=== PATIENT | female | born 1950 | race Hispanic/Latino ===

== ENCOUNTER 2018-10-07 15:55 | Observation (INO) | payer OTHER ==
--- OUTSIDE RECORDS SUMMARY | 2018-10-07 17:23 | XMS REPORT ---
:1950 [facility] [address] [place] [address] [address] [place] [address] Care Team Providers Name Role Phone ALFREDO GAUTAM Unavailable Unavailable Problems This patient has no known problems. Allergies, Adverse Reactions, Alerts This patient has no known allergies or adverse reactions. Medications This patient has no known medications. Results Test Description Test Time Test Comments Text Results Atomic Results Result Comments MM, STEREOTACTIC 2018-08-02 Reason for Addendum BeginsMRN#: BIOPSY, BREAST, 10:24:00 Exam:->microcalcifications of [id number]: RIGHT breast 08/02/2018 Gagan Guerra M.D. 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 Addendum EndsN#: [id number] - MM, STEREOTACTIC BIOPSY, BREAST, RIGHTSTEREOTACTIC GUIDED BIOPSY RIGHT BREAST WITH MARKING DEVICE INSERTED AND POST DIGITAL MAMMOGRAPHIC IMAGING AND RADIOGRAPHIC SPECIMEN IMAGIN07/31/2018PATIENT CONSENT: The procedure, risks, benefits and alternatives were discussed with the patient. Informed consent was obtained. A stereotactic guided biopsy was performed for the area of calcifications located in the right breast at 9 o'clock posterior depth. The skin was prepped in the usual manner. Local anesthetic was administered to the access site. A skin clay was made in the breast. The abnormality was approached from the lateral aspect using a prone table. A 9 gauge biopsy needle was placed adjacent to the abnormality under computer guidance and confirmatory stereotactic mammography images were obtained to document needle placement. Once the needle was documented to be in the correct location, six specimens were obtained using FireHost device. A clip was inserted into the biopsy cavity. Post procedure digital mammographic imaging demonstrates the clip at the targeted area. The specimens were sent to the laboratory for pathological analysis. IMPRESSION: STEREOTACTIC GUIDED BIOPSYStereotactic guided biopsy of the area of calcifications in the right breast at 9 o'clock posterior depth was successful with no apparent post procedure complications. The imaged specimens includes the calcifications. Gagan Guerra M.D. pth/:07/31/2018 14:23:26 Loan Examiner: Winifred WAGGONER(Ирина)(Vitor), [facility] [id number] , STEREOTACTIC 2018-08-02 Reason for Addendum BeginsMRN#: BIOPSY, BREAST, 10:23:00 Exam:->macrocalcifications of [id number]: LEFT breast 08/02/2018 Gagan Guerra M.D. 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 Addendum EndsMRN#: [id number] - MM, STEREOTACTIC BIOPSY, BREAST, LEFTSTEREOTACTIC GUIDED BIOPSY LEFT BREAST WITH MARKING DEVICE INSERTED AND POST DIGITAL MAMMOGRAPHIC IMAGING AND RADIOGRAPHIC SPECIMEN IMAGIN07/31/2018PATIENT CONSENT: The procedure, risks, benefits and alternatives were discussed with the patient. Informed consent was obtained. A stereotactic guided biopsy was performed for the area of calcifications located in the left breast at 8 o'clock posterior depth. The skin was prepped in the usual manner. Local anesthetic was administered to the access site. A skin clay was made in the breast. The abnormality was approached from the medial aspect using a prone table. A 9 gauge biopsy needle was placed adjacent to the abnormality under computer guidance and confirmatory stereotactic mammography images were obtained to document needle placement. Once the needle was documented to be in the correct location, six specimens were obtained using nanoThericsIVA device. A clip was inserted into the biopsy cavity. Post procedure digital mammographic imaging demonstrates the clip at the targeted area. The specimens were sent to the laboratory for pathological analysis. IMPRESSION: STEREOTACTIC GUIDED BIOPSYStereotactic guided biopsy of the area of calcifications in the left breast at 8 o'clock posterior depth was successful with no apparent post procedure complications. The imaged specimens includes the calcifications. Gagan Guerra M.D. pth/:07/31/2018 14:26:29 Loan Examiner: Winifred Graham RT(R)(M), [facility] [id number] UE EXAM 2018-08-01 Surgical Pathology 11:58:00 Report Case: [id number] Authorizing Provider: Gagan Guerra MD Collected: 07/31/2018 1320 Ordering Location: [facility] Received: 07/31/2018 1405 Pathologist: Vani Real MD Specimens: A) - Breast, Left, LEFT POSTERIOR LOWER INNER BREST CALCIFICATION B) - Breast, Right, RIGHT POSTERIOR 9 O CLOCK BREAST CALCIFICATION A. 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 [id number]. [id number] hyalinizing lesions A. Left posterior lower inner breast calcification. B. Right posterior 9 o'clock breast calcification Specimen is received in two containers of formalin both labeled with the patient's information.Specimen A: Labeled "left posterior lower inner breast calcification" consists of multiple yellow breast core biopsies ranging in length from 1 to 3 cm.Ink code: Blue.The specimen is entirely submitted in A1-A3.Specimen B: Labeled "right posterior 9 o'clock breast calcification" consists of multiple yellow breast core biopsies ranging from 0.4 to 3 cm.Ink code: Red.The specimen is entirely submitted in B1 and B2. CG/ew A. - B. Performed. MM, DIGITAL, 2018-07-31 Left breast calcifications MRN#: UNILATERAL, 14:27:00 [id number] - CONFER JESS, MM, DIGITAL, MAMMO, LEFT UNILATERAL, CONFER INCLUDING CAD JESS, MAMMO, LEFT INCLUDING CADUNILATERAL LEFT DIGITAL PROBLEM SOLVING MAMMOGRAM WITH CAD POST-PROCEDURE IMAGING FOR MARKER PLACEMENT: 07/31/2018 The tissue of the left breast is heterogeneously dense. This may lower the sensitivity of mammography. Current study was also evaluated with a Computer Aided Detection (CAD) system. The post procedure mammogram was performed on a separate mammography unit.A clip is placed at the biopsy site. IMPRESSION: POST PROCEDURE MAMMOGRAM FOR MARKER PLACEMENTAwait pathology results. Gagan Guerra M.D. pth/:07/31/2018 14:27:38 Loan Examiner: Winifred DU (R)), [facility] Mammogram BI-RADS: Post-procedure mammogram for marker placement [id number] , MAMMO, 2018-07-31 Reason for exam:->Left breast MRN#: SPECIMEN, 14:26:00 calcifications [id number] - RADIOGRAPH, LEFT MM, MAMMO, SPECIMEN, RADIOGRAPH, LEFTSPECIMEN LEFT BREAST: 07/31/2018Six stereotactic guided biopsy specimens were imaged for the area of calcifications located in the left breast at 8 o'clock posterior depth. IMPRESSION: SPECIMENThe imaged specimens includes the calcifications. Gagan Guerra M.D. pth/:07/31/2018 14:26:58 Loan Examiner: Winfired DU (R)), [facility] [id number] , DIGITAL, 2018-07-31 Right breast calcifications MRN#: UNILATERAL, 14:24:00 [id number] - CONFER JESS, MM, DIGITAL, MAMMO, RIGHT UNILATERAL, CONFER INCLUDING CAD JESS, MAMMO, RIGHT INCLUDING CADUNILATERAL RIGHT DIGITAL PROBLEM SOLVING MAMMOGRAM WITH CAD POST-PROCEDURE IMAGING FOR MARKER PLACEMENT: 07/31/2018 The tissue of the right breast is heterogeneously dense. This may lower the sensitivity of mammography. Current study was also evaluated with a Computer Aided Detection (CAD) system. The post procedure mammogram was performed on a separate mammography unit.A clip is placed at the biopsy site. IMPRESSION: POST PROCEDURE MAMMOGRAM FOR MARKER PLACEMENTAwait pathology results. Gagan Guerra M.D. pth/:07/31/2018 14:24:55 Loan Examiner: Winifred DU (R)), [facility] Mammogram BI-RADS: Post-procedure mammogram for marker placement [id number] , MAMMO, 2018-07-31 Reason for exam:->Right breast MRN#: SPECIMEN, 14:23:00 calcifications [id number] - RADIOGRAPH, RIGHT MM, MAMMO, SPECIMEN, RADIOGRAPH, RIGHTSPECIMEN RIGHT BREAST: 07/31/2018Six stereotactic guided biopsy specimens were imaged for the area of calcifications located in the right breast at 9 o'clock posterior depth. IMPRESSION: SPECIMENThe imaged specimens includes the calcifications. Gagan Guerra M.D. pth/:07/31/2018 14:23:54 Loan Examiner: Winifred DU (R)), [facility] [id number]
--- OUTSIDE RECORDS SUMMARY | 2018-10-07 17:23 | XMS REPORT | Clinical Summary ---
:1950 Author Organization [facility] Address [address] [place] [address] Care Team Providers Name Role Phone Josué Lowe Primary Care Provider Allergies Active Allergy Reactions Severity Noted Date Comments Codeine Swelling High 07/31/2018 Swelling of tounge Medications Medication Sig Dispensed Refills Start End Date Status Date hydroCHLOROthiazide 1 TABLET BY MOUTH 3 Active (HYDRODIURIL) 25 MG ONCE A DAY 8 tablet NEEDED FOR EDEMA levothyroxine Take 100 mcg by 3 Active (SYNTHROID, LEVOTHROID) mouth daily. 8 100 MCG tablet lisinopril Take 40 mg by mouth 3 Active (PRINIVIL,ZESTRIL) 40 MG daily. 8 tablet pravastatin (PRAVACHOL) Take 20 mg by 3 Active 20 MG tablet mouth. 8 amLODIPine (NORVASC) 10 Take 10 mg by 3 Active MG tablet mouth. 8 insulin glargine Inject 32 Units 0 Active (LANTUS) 100 unit/mL subcutaneously injection nightly Use as directed . Active Problems Not on file Encounters Date Type Specialty Care Team Description 07/31/2018 [facility], Microcalcifications of the Encounter Chante breast MD Mamadou 07/31/2018 [facility], Microcalcifications of the Encounter Chante breast MD Mamadou 07/30/2018 Outside Orders [facility], Microcalcifications of the Scheduling Chante breast (Primary Dx) MD Mamadou after 10/06/2017 Social History Tobacco Use Types Packs/Day Years Used Date Never Smoker Smokeless Tobacco: Never Used Alcohol Use Drinks/Week oz/Week Comments No Alcohol Habits Answer Date Recorded How often do you have a drink containing alcohol? Never 07/31/2018 How many drinks containing alcohol do you have on a typical Not asked day when you are drinking? How often do you have six or more drinks on one occasion? Not asked Sex Assigned at Date Recorded Not on file Job Start Date Occupation Industry Not on file Not on file Not on file Travel History Travel Start Travel End No recent travel history available. Last Filed Vital Signs Vital Sign Reading Time Taken Blood Pressure 152/71 07/31/2018 12:00 PM OBSTETRICS NURSE PRACTITIONER Pulse 72 07/31/2018 12:00 PM OBSTETRICS NURSE PRACTITIONER Temperature 36.4 C (97.6 F) 07/31/2018 12:00 PM OBSTETRICS NURSE PRACTITIONER Respiratory Rate 14 07/31/2018 12:00 PM OBSTETRICS NURSE PRACTITIONER Oxygen Saturation 100% 07/31/2018 12:00 PM OBSTETRICS NURSE PRACTITIONER Inhaled Oxygen Concentration - - Weight 88.9 kg (196 lb) 07/31/2018 10:02 AM OBSTETRICS NURSE PRACTITIONER Height 157.5 cm (5' 2") 07/31/2018 10:02 AM OBSTETRICS NURSE PRACTITIONER Body Mass Index 35.85 07/31/2018 10:02 AM OBSTETRICS NURSE PRACTITIONER Plan of Treatment Not on file Procedures Procedure Name Priority Date/Time Associated Diagnosis Comments TISSUE EXAM AP Routine 07/31/2018 Results for 1:20 PM OBSTETRICS NURSE PRACTITIONER this procedure are in the results section. MM, DIGITAL, Routine 07/31/2018 Results for UNILATERAL, CONFER 12:15 PM OBSTETRICS NURSE PRACTITIONER this procedure JESS, MAMMO, RIGHT are in the results section. MM STEREOTACTIC Routine 07/31/2018 Microcalcifications of Results for BREAST BIOPSY - 12:15 PM OBSTETRICS NURSE PRACTITIONER the breast this procedure RIGHT are in the results section. MM BREAST SPECIMEN JENNA 07/31/2018 Results for RADIOGRAPH RIGHT 12:10 PM OBSTETRICS NURSE PRACTITIONER this procedure are in the results section. MM, DIGITAL, Routine 07/31/2018 Results for UNILATERAL, CONFER 12:10 PM OBSTETRICS NURSE PRACTITIONER this procedure JESS, MAMMO, LEFT are in the results section. MM BREAST SPECIMEN JENNA 07/31/2018 Results for RADIOGRAPH LEFT 11:10 AM OBSTETRICS NURSE PRACTITIONER this procedure are in the results section. MM STEREOTACTIC Routine 07/31/2018 Microcalcifications of Results for BREAST BIOPSY - 11:10 AM OBSTETRICS NURSE PRACTITIONER the breast this procedure LEFT are in the results section. after 10/06/2017 Results Tissue Exam (07/31/2018 1:20 PM OBSTETRICS NURSE PRACTITIONER) Case Report Surgical Pathology Report Case: [id number] [facility] Authorizing Provider:Gagan Guerra MDCollected: 07/31/2018 1320 [facility] CenterReceived: 07/31/2018 1405 Pathologist: Vani Real MD Specimens: A) - Breast, Left, LEFT POSTERIOR LOWER INNER BREST CALCIFICATION B) - Breast, Right, RIGHT POSTERIOR 9 O CLOCK BREAST CALCIFICATION DIAGNOSIS A. 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 CPT Code(s) A. 21657 [facility] B. 50829 [facility] CLINICAL HISTORY Questionable hyalinizing [facility] lesions [facility] SPECIMEN SOURCE A. Left posterior lower [facility] inner breast calcification. [facility] B. Right posterior 9 o'clock breast calcification GROSS DESCRIPTION Specimen is received in two containers of formalin both labeled with the patient's information. [facility] Specimen A: Labeled "left posterior lower inner breast calcification" consists of multiple yellow breast core biopsies ranging in length from 1 to 3 cm. Ink code: Blue. The specimen is entirely submitted in A1-A3. Specimen B: Labeled "right posterior 9 o'clock breast calcification" consists of multiple yellow breast core biopsies ranging from 0.4 to 3 cm. Ink code: Red. The specimen is entirely submitted in B1 and B2. CG/ew MICROSCOPIC DESCRIPTION A. - B. Performed. [facility] Specimen Tissue - Breast, Right Performing Organization Address City/State/Zipcode Phone Number [address] [address] [phone] CENTER MM Stereotactic breast biopsy right (07/31/2018 12:15 PM OBSTETRICS NURSE PRACTITIONER) Narrative Performed At Addendum Begins [facility] AMENDMENT: 08/02/2018 Gagan Guerra M.D. 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 This is concordant with the imaging findings. Addendum Ends #[id number] - MM, STEREOTACTIC BIOPSY, BREAST, RIGHT STEREOTACTIC GUIDED BIOPSY RIGHT BREAST WITH MARKING DEVICE INSERTED AND POST DIGITAL MAMMOGRAPHIC IMAGING AND RADIOGRAPHIC SPECIMEN IMAGIN07/31/2018 PATIENT CONSENT: The procedure, risks, benefits and alternatives were discussed with the patient. Informed consent was obtained. A stereotactic guided biopsy was performed for the area of calcifications located in the right breast at 9 o'clock posterior depth.The skin was prepped in the usual manner.Local anesthetic was administered to the access site.A skin clay was made in the breast.The abnormality was approached from the lateral aspect using a prone table.A 9 gauge biopsy needle was placed adjacent to the abnormality under computer guidance and confirmatory stereotactic mammography images were obtained to document needle placement.Once the needle was documented to be in the correct location, six specimens were obtained using [employer] device.A clip was inserted into the biopsy cavity.Post procedure digital mammographic imaging demonstrates the clip at the targeted area.The specimens were sent to the laboratory for pathological analysis. IMPRESSION: STEREOTACTIC GUIDED BIOPSY Stereotactic guided biopsy of the area of calcifications in the right breast at 9 o'clock posterior depth was successful with no apparent post procedure complications.The imaged specimens includes the calcifications. Gagan Guerra M.D. pth/:07/31/2018 14:23:26 Treating Engineer Helper: Winifred WAGGONER(Ирина)(M), [facility] [id number] Procedure Note Interface, External Ris In - 08/02/2018 11:40 AM OBSTETRICS NURSE PRACTITIONER Addendum Begins AMENDMENT: 08/02/2018 Gagan Guerra M.D. 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 This is concordant with the imaging findings. Addendum Ends #[id number] - MM, STEREOTACTIC BIOPSY, BREAST, RIGHT STEREOTACTIC GUIDED BIOPSY RIGHT BREAST WITH MARKING DEVICE INSERTED AND POST DIGITAL MAMMOGRAPHIC IMAGING AND RADIOGRAPHIC SPECIMEN IMAGIN07/31/2018 PATIENT CONSENT: The procedure, risks, benefits and alternatives [...] correct location, six specimens were obtained using [employer] device. A clip was inserted into the biopsy cavity. Post procedure digital mammographic imaging demonstrates the clip at the targeted area. The specimens were sent to the laboratory for pathological analysis. IMPRESSION: STEREOTACTIC GUIDED BIOPSY Stereotactic guided biopsy of the area of calcifications in the right breast at 9 o'clock posterior depth was successful with no apparent post procedure complications. The imaged specimens includes the calcifications. Gagan Guerra M.D. pth/:07/31/2018 14:23:26 Treating Engineer Helper: Winifred WAGGONER(Ирина)(Vitor), [facility] [id number] Performing Organization Address City/State/Zipcode Phone Number [facility] MM, DIGITAL, UNILATERAL, CONFER JESS, MAMMO, RIGHT (07/31/2018 12:15 PM OBSTETRICS NURSE PRACTITIONER) Narrative Performed At [facility] #[id number] - MM, DIGITAL, UNILATERAL, CONFER JESS, MAMMO, RIGHT INCLUDING CAD UNILATERAL RIGHT DIGITAL PROBLEM SOLVING MAMMOGRAM WITH CAD POST-PROCEDURE IMAGING FOR MARKER PLACEMENT: 07/31/2018 The tissue of the right breast is heterogeneously dense. This may lower the sensitivity of mammography. Current study was also evaluated with a Computer Aided Detection (CAD) system. The post procedure mammogram was performed on a separate mammography unit. A clip is placed at the biopsy site. IMPRESSION: POST PROCEDURE MAMMOGRAM FOR MARKER PLACEMENT Await pathology results. Gagan Guerra M.D. pth/:07/31/2018 14:24:55 Treating Engineer Helper: Winifred DU (R)), [facility] Mammogram BI-RADS: Post-procedure mammogram for marker placement [id number] Procedure Note Interface, External Ris In - 07/31/2018 2:32 PM OBSTETRICS NURSE PRACTITIONER #[id number] - MM, DIGITAL, UNILATERAL, CONFER JESS, MAMMO, RIGHT INCLUDING CAD UNILATERAL RIGHT DIGITAL PROBLEM SOLVING MAMMOGRAM WITH CAD POST-PROCEDURE IMAGING FOR MARKER PLACEMENT: 07/31/2018 The tissue of the right breast is heterogeneously dense. This may lower the sensitivity of mammography. Current study was also evaluated with a Computer Aided Detection (CAD) system. The post procedure mammogram was performed on a separate mammography unit. A clip is placed at the biopsy site. IMPRESSION: POST PROCEDURE MAMMOGRAM FOR MARKER PLACEMENT Await pathology results. Gagan Guerra M.D. pth/:07/31/2018 14:24:55 Treating Engineer Helper: Winifred DU (R)), [facility] Mammogram BI-RADS: Post-procedure mammogram for marker placement [id number] Performing Organization Address City/State/Zipcode Phone Number [facility] MM Breast Specimen Radiograph Right (07/31/2018 12:10 PM OBSTETRICS NURSE PRACTITIONER) Narrative Performed At [facility] #[id number] - MM, MAMMO, SPECIMEN, RADIOGRAPH, RIGHT SPECIMEN RIGHT BREAST: 07/31/2018 Six stereotactic guided biopsy specimens were imaged for the area of calcifications located in the right breast at 9 o'clock posterior depth. IMPRESSION: SPECIMEN The imaged specimens includes the calcifications. Gagan Guerra M.D. pth/:07/31/2018 14:23:54 Treating Engineer Helper: Winifred DU (R)), [facility] [id number] Procedure Note Interface, External Ris In - 07/31/2018 2:32 PM OBSTETRICS NURSE PRACTITIONER #[id number] - MM, MAMMO, SPECIMEN, RADIOGRAPH, RIGHT SPECIMEN RIGHT BREAST: 07/31/2018 Six stereotactic guided biopsy specimens were imaged for the area of calcifications located in the right breast at 9 o'clock posterior depth. IMPRESSION: SPECIMEN The imaged specimens includes the calcifications. Gagan Guerra M.D. pth/:07/31/2018 14:23:54 Treating Engineer Helper: Winifred DU (R)), [facility] [id number] Performing Organization Address City/State/Zipcode Phone Number [facility] MM, DIGITAL, UNILATERAL, CONFER JESS, MAMMO, LEFT (07/31/2018 12:10 PM OBSTETRICS NURSE PRACTITIONER) Narrative Performed At [facility] #[id number] - MM, DIGITAL, UNILATERAL, CONFER JESS, MAMMO, LEFT INCLUDING CAD UNILATERAL LEFT DIGITAL PROBLEM SOLVING MAMMOGRAM WITH CAD POST-PROCEDURE IMAGING FOR MARKER PLACEMENT: 07/31/2018 The tissue of the left breast is heterogeneously dense. This may lower the sensitivity of mammography. Current study was also evaluated with a Computer Aided Detection (CAD) system. The post procedure mammogram was performed on a separate mammography unit. A clip is placed at the biopsy site. IMPRESSION: POST PROCEDURE MAMMOGRAM FOR MARKER PLACEMENT Await pathology results. Gagan Guerra M.D. pth/:07/31/2018 14:27:38 Treating Engineer Helper: Winifred DU (R)), [facility] Mammogram BI-RADS: Post-procedure mammogram for marker placement [id number] Procedure Note Interface, External Ris In - 07/31/2018 3:55 PM OBSTETRICS NURSE PRACTITIONER #[id number] - MM, DIGITAL, UNILATERAL, CONFER JESS, MAMMO, LEFT INCLUDING CAD UNILATERAL LEFT DIGITAL PROBLEM SOLVING MAMMOGRAM WITH CAD POST-PROCEDURE IMAGING FOR MARKER PLACEMENT: 07/31/2018 The tissue of the left breast is heterogeneously dense. This may lower the sensitivity of mammography. Current study was also evaluated with a Computer Aided Detection (CAD) system. The post procedure mammogram was performed on a separate mammography unit. A clip is placed at the biopsy site. IMPRESSION: POST PROCEDURE MAMMOGRAM FOR MARKER PLACEMENT Await pathology results. Gagan Guerra M.D. pth/:07/31/2018 14:27:38 Treating Engineer Helper: Winifred WAGGONER(R)(M), [facility] Mammogram BI-RADS: Post-procedure mammogram for marker placement [id number] Performing Organization Address City/State/Zipcode Phone Number [id number] MM Stereotactic breast biopsy left (07/31/2018 11:10 AM [facility]) Narrative Performed At Addendum Begins [id number] AMENDMENT: 08/02/2018 Gagan Guerra M.D. 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 This is concordant with the imaging findings. Addendum Ends #[id number] - MM, STEREOTACTIC BIOPSY, BREAST, LEFT STEREOTACTIC GUIDED BIOPSY LEFT BREAST WITH MARKING DEVICE INSERTED AND POST DIGITAL MAMMOGRAPHIC IMAGING AND RADIOGRAPHIC SPECIMEN IMAGIN07/31/2018 PATIENT CONSENT: The procedure, risks, benefits and alternatives were discussed with the patient. Informed consent was obtained. A stereotactic guided biopsy was performed for the area of calcifications located in the left breast at 8 o'clock posterior depth.The skin was prepped in the usual manner.Local anesthetic was administered to the access site.A skin clay was made in the breast.The abnormality was approached from the medial aspect using a prone table.A 9 gauge biopsy needle was placed adjacent to the abnormality under computer guidance and confirmatory stereotactic mammography images were obtained to document needle placement.Once the needle was documented to be in the correct location, six specimens were obtained using [employer] device.A clip was inserted into the biopsy cavity.Post procedure digital mammographic imaging demonstrates the clip at the targeted area.The specimens were sent to the laboratory for pathological analysis. IMPRESSION: STEREOTACTIC GUIDED BIOPSY Stereotactic guided biopsy of the area of calcifications in the left breast at 8 o'clock posterior depth was successful with no apparent post procedure complications.The imaged specimens includes the calcifications. Gagan Guerra M.D. pth/:07/31/2018 14:26:29 Treating Engineer Helper: Winifred WAGGONER(Ирина)(Vitor), [facility] [id number] Procedure Note Interface, External Ris In - 08/02/2018 11:40 AM OBSTETRICS NURSE PRACTITIONER Addendum Begins AMENDMENT: 08/02/2018 Gagan Guerra M.D. 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 This is concordant with the imaging findings. Addendum Ends #[id number] - MM, STEREOTACTIC BIOPSY, BREAST, LEFT STEREOTACTIC GUIDED BIOPSY LEFT BREAST WITH MARKING DEVICE INSERTED AND POST DIGITAL MAMMOGRAPHIC IMAGING AND RADIOGRAPHIC SPECIMEN IMAGIN07/31/2018 PATIENT CONSENT: The procedure, risks, benefits and alternatives [...] correct location, six specimens were obtained using [employer] device. A clip was inserted into the biopsy cavity. Post procedure digital mammographic imaging demonstrates the clip at the targeted area. The specimens were sent to the laboratory for pathological analysis. IMPRESSION: STEREOTACTIC GUIDED BIOPSY Stereotactic guided biopsy of the area of calcifications in the left breast at 8 o'clock posterior depth was successful with no apparent post procedure complications. The imaged specimens includes the calcifications. Gagan Guerra M.D. pth/:07/31/2018 14:26:29 Treating Engineer Helper: Winifred DU (R)), [facility] [id number] Performing Organization Address City/State/Zipcode Phone Number [facility] MM Breast Specimen Radiograph Left (07/31/2018 11:10 AM OBSTETRICS NURSE PRACTITIONER) Narrative Performed At [facility] #[id number] - MM, MAMMO, SPECIMEN, RADIOGRAPH, LEFT SPECIMEN LEFT BREAST: 07/31/2018 Six stereotactic guided biopsy specimens were imaged for the area of calcifications located in the left breast at 8 o'clock posterior depth. IMPRESSION: SPECIMEN The imaged specimens includes the calcifications. Gagan Guerra M.D. pth/:07/31/2018 14:26:58 Treating Engineer Helper: Winifred DU (R)), [facility] [id number] Procedure Note Interface, External Ris In - 07/31/2018 3:56 PM OBSTETRICS NURSE PRACTITIONER #[id number] - MM, MAMMO, SPECIMEN, RADIOGRAPH, LEFT SPECIMEN LEFT BREAST: 07/31/2018 Six stereotactic guided biopsy specimens were imaged for the area of calcifications located in the left breast at 8 o'clock posterior depth. IMPRESSION: SPECIMEN The imaged specimens includes the calcifications. Gagan Guerra M.D. pth/:07/31/2018 14:26:58 Treating Engineer Helper: Winifred WAGGONER (R M), [facility] [id number] Performing Organization Address City/State/Zipcode Phone Number [facility] after 10/06/2017 Insurance Payer Benefit Plan / Subscriber ID Type Phone Address Group [employer] - MEDICARE AETNA MEDICARE xxxxxxxx Maps [phone] [address] [employer] OPEN [place] [place] [address]
[2018-10-07] MEDS ORDERED: ONDANSETRON 4 MG/2 ML VIAL IV PRN (17:51)
[2018-10-07] MEDS ORDERED: GLUCAGON 1 MG/VIAL IM PRN (17:51)
[2018-10-07] MEDS ORDERED: D50W 25 GM/50 ML SYRINGE IV PRN (17:51)
[2018-10-07] MEDS: INSULIN -REGULAR HUMAN 50 UNIT/0.5 ML ML SQ SCH (18:00)
[2018-10-07 18:16] LABS: Absolute Lymphocytes (CBC) 1.9 K/uL (0.7-4.9); Absolute Monocytes 0.7 K/uL (0.1-1.3); Absolute Neutrophil 2.5 K/uL (1.8-8.0); Basophils % 0.3 % (0-1.3); Lymphocytes % 37.1 % (15.3-44.8); MPV 9.6 fL (7.6-11.3); Monocytes % 13.5 % (3.3-12.3); RBC Red Blood Cell Count 4.61 M/uL (3.86-4.86)
[2018-10-07 18:38] LABS: Albumin 3.7 g/dL (3.4-5.0); Bilirubin Total 0.4 mg/dL (0.2-1.0); Potassium 3.6 mmol/L (3.5-5.1); Protein, Total 7.5 g/dL (6.4-8.2)
[2018-10-07 20:04] LABS: Urine Appearance CLOUDY; Urine Bilirubin NEGATIVE (NEG); Urine Blood NEGATIVE (NEG); Urine Color YELLOW; Urine Glucose NEGATIVE (NEG); Urine Protein NEGATIVE (NEG); Urine Urobilinogen 0.2 mg/dL (0.2-1.0)
[2018-10-07 20:06] LABS: Urine Microscopic Reflex ORDER UMIC
[2018-10-07 20:23] LABS: Urine Bacteria >50 /HPF (<20); Urine RBC NONE SEEN /HPF (NONE SEEN)
[2018-10-07 20:24] LABS: Urine Culture Reflex Order NOT NEEDED
[2018-10-07] MEDS: NACHLORIDE 0.45% 1,000 ML IV SCH (21:22)
[2018-10-08] MEDS: NACHLORIDE 0.45% 1,000 ML IV SCH ×5 (00:40→22:00)
[2018-10-08 02:12] VITALS: BMI 33.7
[2018-10-08] MEDS: INSULIN -REGULAR HUMAN 50 UNIT/0.5 ML ML SQ SCH ×5 (06:00→21:00)
[2018-10-08 06:48] LABS: Potassium 3.9 mmol/L (3.5-5.1)
[2018-10-08] MEDS ORDERED: PNEUMOCOCCAL VACCINE 0.5 ML IMVAC ONE (09:00)
--- NOTE | 2018-10-09 00:36 | HP ---
Date of Admission: 10/07/2018 Chief Complaint: Diarrhea, vomiting, and dehydration. History Of Present Illness: A 68-year-old female was brought to the office with 3-4 days of diarrhea and vomiting and dehydration. The patient was found to have clinically dehydrated with a blood pres sure systolic 100. The patient is admitted for observation. Past Medical History: Extensive, includes history of hypotension, chronic renal insufficiency, hyper lipidemia. Past Surgical History: Positive for right shoulder surgery and gallbladder surgery. Family History: Positive for dementia and heart disease, COPD. Review of Systems: The patient denies any chest pain or shortness of breath. Physical Examination: General: Revealed 68-year-old female, fully alert and oriented. Vital Signs: At the time of admission included blood pressure of 109/60, temperature normal. HEENT: No icterus. Neck: Supple. JVD negative. Chest: Clear. Heart: Regular. Abdomen: Mild diffuse tenderness. Bowel sounds present. Extremities: No edema. Neurological: No deficits. Laboratory Data: White count normal. Chem profile; BUN 53, creatinine 2.76. Assessment: 1.Gastroenteritis. 2.Dehydration. 3.Vfidc-dp-vamsrbl renal failure. 4.Type 2 diabetes. 5.Hyperlipidemia. Plan: IV fluids. Hold blood pressure medications. Try clear liquid diet. LAURA/JAZZY Voice ID: [id number]
--- NOTE | 2018-10-09 02:01 | PN ---
The patient's creatinine is better; however, her BUN is still high. She still has diarrhea. In view of that the patient has been given same amount of IV fluids until this evening, I cut down the IV fl uids to 50 cc an hour. She will have repeat C7 in the a.m. LAURA/JAZZY Voice ID: [id number] Report ID: [id number]
[2018-10-09 06:15] LABS: Potassium 4.2 mmol/L (3.5-5.1)
[2018-10-09] MEDS: INSULIN -REGULAR HUMAN 50 UNIT/0.5 ML ML SQ SCH (07:30)
[2018-10-09 07:31] VITALS: O2SAT 98
[2018-10-09] MEDS: NACHLORIDE 0.45% 1,000 ML IV SCH (08:06)
[2018-10-09 08:54] VITALS: BP 102/44; TEMP 97
== END 2018-10-09 10:20 | disposition home or self-care (01) ==
LOC: 4TH 17:19
PROVIDERS: ADMIT Internal Medicine; ATTEND Internal Medicine
DX: K52.9 Noninfective gastroenteritis and colitis, unspecified (principal); E86.0 Dehydration; N18.9 Chronic kidney disease, unspecified; N17.9 Acute kidney failure, unspecified; E11.8 Type 2 diabetes mellitus with unspecified complications; E78.5 Hyperlipidemia, unspecified; I95.9 Hypotension, unspecified
CPT/HCPCS: 87045; 85025; 80048 ×2; 36415 ×2; 82962 ×7; 87046; 87493; 83690; 80053; 90670; G0009; J2405; G0379; G0378; 81003; 81015

== ENCOUNTER 2020-01-12 17:15 | Emergency (ER) | payer OTHER ==
--- OUTSIDE RECORDS SUMMARY | 2020-01-12 17:34 | XMS REPORT | Clinical Summary ---
:1950 Author Organization [facility] Address [address] [place] [address] Care Team Providers Name Role Phone Leonard Lowe Primary Care Provider Unavailable Allergies Active Allergy Reactions Severity Noted Date Comments Codeine Swelling High 07/31/2018 Swelling of kenneth nge Medications Medication Sig Dispensed Refills Start End [...] directed . Active Problems Not on file Social History Tobacco Use Types Packs/Day Years [...] six or more drinks on one occasion? No t asked Sex Assigned at Date Recorded Not on file Job Start Date Occupation Industry Not on file Not on file Not on file Travel History Travel Start Travel End No recent travel history available. Last Filed Vital Signs Not on file Plan of Treatment Not on file Results Not on fileafter 01/11/2019 Insurance Payer Benefit Plan / Subscriber ID Type Phone Address Group [employer] - MEDICARE AETNA MEDICARE xxxxxxxx [facility] [phone] [address] [employer] [place] [address] [address]) [place] [phone]
--- OUTSIDE RECORDS SUMMARY | 2020-01-12 17:35 | XMS REPORT | Continuity of Care Document ---
:1950 Author Organization [facility] t Address [address] [place] [address] Dr. Espitia. [address] [place] [address] Care Team Providers Name Role Phone Leonard Lowe Primary Care Physician Unavailable JAKE GAUTAM Attending Clinician Unavailable Problems This patient has no known problems. Allergies, Adverse Reactions, Alerts Allergy Allergy Status Severity Reaction(s) Onset Inactive Treating Comm ents Source Name Type Date Date Clinician Codeine Drug Active Swelling Swelling [facility] Social History Social Habit Start Date Stop Date Quantity Comments Source History [facility] Alcohol [facility] Std [facility]inks [facility] History [facility] Alcohol [facility] Binge [facility] Sex Assigned At [facility] History SDOH Alcohol 2018-07-31 2018-07-[address] [facility] - Frequency 00:00:00 00:00:00 Medical [place] Smoking Status Start Date Stop Date Source Never smoker [facility] edical [place] Medications Ordered Filled Start Stop Current Ordering Indication Dosage Frequency Signature Comments Components Source Medication Medication Date Date Medication? Clinician (SIG) Name Name insulin Yes 32U QD Inject 32 [facility] glargine 1-30 Units [facility] - (LANTUS) 10:25: subcutaneo Med ical 100 unit/mL 13 usly Center injection nightly Use as directed . hydroCHLORO 2017-07 Yes [address] thiazide 1-12 BY MOUTH [facility] - (HYDRODIURI 00:00: ONCE A DAY Medical L) 25 MG 00 NEEDED Center tablet FOR EDEMA levothyroxi 2017-07 Yes 100ug QD Take [address] ne 1-12 mcg by [facility] - (SYNTHROID, 00:00: mouth Medic al LEVOTHROID) 00 daily. [place] 100 MCG tablet amLODIPine 2017-07 Yes 10mg Take [address] (NORVASC) 1-12 by mouth. [facility] - 10 MG 00:00: Medical tablet 00 Center lisinopril 2017-07 Yes 40mg QD Take [address] (PRINIVIL,Z 1-03 by mouth [facility] - ESTRIL) 40 00:00: daily. Medic al MG tablet 00 Center pravastatin 2017-07 Yes 20mg Take [address] (PRAVACHOL) 1-03 by mouth. July es - 20 MG 00:00: Medical tablet 00 Center Procedures This patient has no known procedures. Results Test Description Test Time Test Comments Results Result [facility] e Comments MM, STEREOTACTIC Reason for Addendum BeginsMRN#: BIOPSY, BREAST, 1 Exam:->microcalcif [id number]: RIGHT 10:24:00 ications of breast 08/02/2018 Gagan Guerra M.D. 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 Addendum EndsMRN#: [id number] - MM, STEREOTACTIC BIOPSY, BREAST, RIGHTSTEREOTACTIC GUIDED [...] correct location, six specimens were obtained using [employer] device. A clip was inserted into the [...] the calcifications. Gagan Guerra M.D. pth/:07/31/2018 14:23:26 Knitting Machine Operator: Winifred WAGGONER (R)(Vitor), [facility] [id number] , STEREOTACTIC Reason for Addendum BeginsMRN#: BIOPSY, BREAST, 1 Exam:->macrocalcif [id number]: LEFT 10:23:00 ications of breast 08/02/2018 Gagan Guerra M.D. 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 Addendum EndsMRN#: [id number] - MM, STEREOTACTIC BIOPSY, BREAST, LEFTSTEREOTACTIC GUIDED [...] administered to the access site. A skin caly was made in the breast. The abnormality was approached from the medial aspect using a prone table. A 9 gauge biopsy needle was placed adjacent to the abnormality under computer guidance and confirmatory stereotactic mammography images were obtained to document needle placement. Once the needle was documented to be in the correct location, six specimens were obtained using ComActivityIVA device. A clip was inserted into the [...] the calcifications. Gagan Guerra M.D. pth/:07/31/2018 14:26:29 Knitting Machine Operator: Winifred Graham RT(R)(M), [facility] [id number] UE EXAM 2018-07-04 Surgical Pathology 1 Report 11:58:00 Case: [id number] Authorizing Provider: Gagan Guerra MD Collected: 07/31/2018 1320 Ordering Location: [facility] Received: 07/31/2018 1405 Pathologist: Vani [...] COARSE CALCIFICATIONS Signing Pathologist Direct Phone Line: [phone] ally signed by Vani Real MD on 08/01/2018 at 11:58 Curiel the sections examined, no atypical hyperplasia or carcinoma is identified.A. [id number]. [id number] hyalinizing lesions A. Left posterior lower inner [...] CG/ew A. - B. Performed. MM, DIGITAL, 2018-07-04 Left breast MRN#: UNILATERAL, 0 calcifications [id number] - CONFER JESS, 14:27:00 MM, DIGITAL, MAMMO, LEFT UNILATERAL, CONFER INCLUDING [...] pathology results. Gagan Guerra M.D. pth/:07/31/2018 14:27:38 Knitting Machine Operator: Winifred DU (R)), [facility] Mammogram BI-RADS: Post-procedure mammogram for marker placement [id number] , MAMMO, 2018-07-04 Reason for MRN#: SPECIMEN, 0 exam:->Left breast [id number] - RADIOGRAPH, LEFT 14:26:00 calcifications MM, MAMMO, SPECIMEN, RADIOGRAPH, LEFTSPECIMEN LEFT BREAST: 07/31/2018Six stereotactic guided biopsy specimens were imaged for the area of calcifications located in the left breast at 8 o'clock posterior depth. IMPRESSION: SPECIMENThe imaged specimens includes the calcifications. Gagan Guerra M.D. pth/:07/31/2018 14:26:58 Knitting Machine Operator: Winifred MANCINI)(Vitor), [facility] [id number] , DIGITAL, 2018-07-04 Right breast MRN#: UNILATERAL, 0 calcifications [id number] - CONFER JESS, 14:24:00 MM, DIGITAL, MAMMO, RIGHT UNILATERAL, CONFER INCLUDING [...] pathology results. Gagan Guerra M.D. pth/:07/31/2018 14:24:55 Knitting Machine Operator: Winifred DU (R)), [facility] Mammogram BI-RADS: Post-procedure mammogram for marker placement [id number] , MAMMO, 2018-07-04 Reason for MRN#: SPECIMEN, 0 exam:->Right [id number] - RADIOGRAPH, RIGHT 14:23:00 breast MM, MAMMO, SPECIMEN, calcifications RADIOGRAPH, RIGHTSPECIMEN RIGHT BREAST: 07/31/2018Six stereotactic guided biopsy specimens were imaged for the area of calcifications located in the right breast at 9 o'clock posterior depth. IMPRESSION: SPECIMENThe imaged specimens includes the calcifications. Gagan Guerra M.D. pth/:07/31/2018 14:23:54 Knitting Machine Operator: Winifred WAGGONER (R)(Vitor), [facility] [id number]
[2020-01-12] MEDS ORDERED: ACETAMINOPHEN 500 MG TAB ONE (19:44)
--- NOTE | 2020-01-12 19:48 | RAD REPORT ---
EXAM DESCRIPTION: CT - CTHCSPWOC - 01/12/2020 7:34 pm CLINICAL HISTORY: Trauma, head and neck injury. fall COMPARISON: No comparisons TECHNIQUE: Axial 5 mm thick images of the head were obtained. Axial 2 mm thick images of the cervical spine were obtained with sagittal and coronal reconstruction images generated and reviewed. All CT scans are performed using dose optimization technique as appropriate and may include automated exposure control or mA/KV adjustment according to patient size. FINDINGS: CT HEAD WITHOUT CONTRAST: No acute hemorrhage, hydrocephalus or extra-axial collection is identified.Moderate diffuse brain atr ophy.No areas of brain edema or midline shift. The paranasal sinuses and mastoids are clear.The calvarium is intact. CT CERVICAL SPINE WITHOUT CONTRAST: No fracture or subluxation.Moderate multilevel degenerative change involves the mid and lower cervica l spine with disc thinning and posterior osteophyte formation.No prevertebral soft tissues swelling i s identified. IMPRESSION: No acute intracranial or cervical spine findings. Moderate multilevel cervical degenerative change.
--- NOTE | 2020-01-12 19:57 | RAD REPORT ---
EXAM DESCRIPTION: RAD - Shoulder Right 2 View - 01/12/2020 7:49 pm CLINICAL HISTORY: fall Fall, trauma, shoulder pain COMPARISON: No comparisons FINDINGS: Glenohumeral and AC joint degenerative changes are present with a high-riding humeral head , suggesting rotator cuff tear is present. No acute fracture or dislocation seen.
--- NOTE | 2020-01-12 19:58 | RAD REPORT ---
EXAM DESCRIPTION: RAD - Wrist Right 3 View - 01/12/2020 7:51 pm CLINICAL HISTORY: fall Pain COMPARISON: No comparisons FINDINGS: Mild arthritic changes involve the radiocarpal joint. No acute fracture or dislocation se en.
--- NOTE | 2020-01-12 19:58 | RAD REPORT ---
EXAM DESCRIPTION: RAD - Humerus Right - 01/12/2020 7:52 pm CLINICAL HISTORY: fall Fall, trauma, pain COMPARISON: No comparisons FINDINGS: No acute fracture or dislocation seen.
--- NOTE | 2020-01-12 20:57 | EDPHYS ---
Physician Documentation [facility] Name: Gisele Abbott Age: 69 yrs Sex: Female : 1950 Arrival Date: 01/12/2020 Time: 17:19 Bed 13 Private MD: Josué Dejesus R ED Physician Alexey Lowe HPI: 01/11 19:45 This 69 yrs old Female presents to ER via Ambulatory with complaints of Fall mh7 Injury. 19:45 Details of fall: The patient fell from an upright position, while walking. Onset: The mh7 symptoms/episode began/occurred today. Associated injuries: The patient sustained injury to the head, contusion, pain, swelling, tenderness, neck injury, pain, pain with movement, tenderness, Right Shoulder, Right Arm, Right Wrist, decreased range of motion, painful injury. Severity of symptoms: At their worst the symptoms were moderate, earlier today, in the emergency department the symptoms have improved, moderately. Patient states that she tripped and fell into a wall then floor while carrying a laundry basket today. She states that she was dazed afterwards and does not believe she had LOC. She complains of head pain, neck pain, right shoulder, right arm, and right wrist pain. She denies any symptoms prior to falling including headache, chest pain, abdominal pain, SOB, nausea, vomiting, numbness/tingling, or weakness.. Historical: - Allergies: 17:34 Codeine; ll1 17:34 Tape; ll1 - PMHx: 17:34 Diabetes - IDDM; Hypertension; stage 3 kidney disease; ll1 - PSHx: 17:34 Cholecystectomy; Left rotator cuff; ll1 - Immunization history:: Flu vaccine is up to date. - Social history:: Smoking status: Patient denies any tobacco usage or history of. Patient/guardian denies using alcohol, street drugs, tobacco products. ROS: 19:45 Constitutional: Negative for fever, chills, and weight loss, Eyes: Negative for injury, mh7 pain, redness, and discharge, ENT: Negative for injury, pain, and discharge, Cardiovascular: Negative for chest pain, palpitations, and edema, Respiratory: Negative for shortness of breath, cough, wheezing, and pleuritic chest pain, Abdomen/GI: Negative for abdominal pain, nausea, vomiting, diarrhea, and constipation, Back: Negative for injury and pain, : Negative for injury, bleeding, discharge, and swelling, Skin: Negative for injury, rash, and discoloration, Neuro: Negative for headache, weakness, numbness, tingling, and seizure, Psych: Negative for depression, anxiety, suicide ideation, homicidal ideation, and hallucinations, Allergy/Immunology: Negative for hives, rash, and allergies, Endocrine: Negative for neck swelling, polydipsia, polyuria, polyphagia, and marked weight changes, Hematologic/Lymphatic: Negative for swollen nodes, abnormal bleeding, and unusual bruising. Exam: 19:45 Constitutional: This is a well developed, well nourished patient who is awake, alert, mh7 and in no acute distress. 19:45 Eyes: Pupils equal round and reactive to light, extra-ocular motions intact. Lids and lashes normal. Conjunctiva and sclera are non-icteric and not injected. Cornea within normal limits. Periorbital areas with no swelling, redness, or edema. ENT: Nares patent. No nasal discharge, no septal abnormalities noted. Tympanic membranes are normal and external auditory canals are clear. Oropharynx with no redness, swelling, or masses, exudates, or evidence of obstruction, uvula midline. Mucous membranes moist. 19:45 Chest/axilla: Normal chest wall appearance and motion. Nontender with no deformity. No lesions are appreciated. Cardiovascular: Regular rate and rhythm with a normal S1 and S2. No gallops, murmurs, or rubs. Normal PMI, no JVD. No pulse deficits. Respiratory: Lungs have equal breath sounds bilaterally, clear to auscultation and percussion. No rales, rhonchi or wheezes noted. No increased work of breathing, no retractions or nasal flaring. Abdomen/GI: Soft, non-tender, with normal bowel sounds. No distension or tympany. No guarding or rebound. No evidence of tenderness throughout. Back: No spinal tenderness. No costovertebral tenderness. Full range of motion. Skin: Warm, dry with normal turgor. Normal color with no rashes, no lesions, and no evidence of cellulitis. 19:45 Neuro: Awake and alert, GCS 15, oriented to person, place, time, and situation. Cranial nerves II-XII grossly intact. Motor strength 5/5 in all extremities. Sensory grossly intact. Cerebellar exam normal. Normal gait. Psych: Awake, alert, with orientation to person, place and time. Behavior, mood, and affect are within normal limits. 19:45 Head/face: Noted is contusion, that is superficial, of the forehead, tenderness, that is moderate, of the forehead. 19:45 Neck: External neck: is normal, C-spine: vertebral tenderness, that is mild, appreciated at cervical spine, Thyroid: appears normal, Trachea: is midline with no obvious abnormalities, ROM/movement: pain, that is mild, with rotation to the left, with rotation to the right, Meningeal signs: are not present, nuchal rigidity, is not appreciated, Lymph nodes: no appreciated lymphadenopathy. 19:45 Musculoskeletal/extremity: Extremities: noted in the right shoulder: pain, tenderness, decreased ROM, noted in the right arm: tenderness, noted in the right wrist: pain, swelling, tenderness, ROM: limited active range of motion due to pain, in the right arm, limited passive range of motion due to pain, in the right arm, Circulation is intact in all extremities. Pulses: are normal with no appreciated deficits, Sensation intact. Compartment Syndrome exam of affected extremity: is normal. no numbness, no tingling, no sensation deficit, no palor, no weak pulses, Joints: the right shoulder and right wrist displays painful range of motion, tenderness, Weight bearing: able to fully bear weight, without difficulty, Tendon exam: specific tendon testing normal through active and passive range of motion Vital Signs: 17:31 BP 170 / 78; Pulse 66; Resp 18; Temp 98.0; Pulse Ox 98% ; Pain 6/10; ll1 21:00 BP 138 / 77; Pulse 68; Resp 18; Pulse Ox 99% on R/A; wh Procedures: 01/12 00:23 Splinting: Splint applied to right wrist using wrist splint, applied by tech. Examined mh7 by me, post splint application: neurovascular intact, 2+ distal pulses palpable, brisk capillary refill noted, Patient tolerated well. MDM: 01/11 19:18 Patient medically screened. 7 20:53 Differential diagnosis: abrasion, closed head injury, contusion, fracture, sprain. Data 7 reviewed: vital signs, nurses notes, radiologic studies, plain films. Data interpreted: Pulse oximetry: on room air is 98 %. Interpretation: normal. Counseling: I had a detailed discussion with the patient and/or guardian regarding: the historical points, exam findings, and any diagnostic results supporting the discharge/admit diagnosis, the presence of at least one elevated blood pressure reading (>120/80) during this emergency department visit, radiology results, the need for outpatient follow up, for definitive care, a orthopedic surgeon, to return to the emergency department if symptoms worsen or persist or if there are any questions or concerns that arise at home. Response to treatment: the patient's symptoms have markedly improved after treatment. 01/11 19:20 Order name: CT Head C Spine; Complete Time: 20:41 [facility] 01/11 19:20 Order name: Shoulder Right (2 View) XRAY; Complete Time: 20:41 [facility] 01/11 19:20 Order name: Humerus Right XRAY; Complete Time: 20:41 7 01/11 19:20 Order name: Wrist Right 3 View XRAY; Complete Time: 20:41 7 Administered Medications: 20:00 Drug: Tylenol 1000 mg Route: PO; 20:57 Follow up: Response: No adverse reaction; Pain is decreased Disposition: 01/12/20 20:57 Discharged to Home. Impression: Fall-Mechanical, Contusion-Right Shoulder, Contusion-Head, Cervical Strain, Contusion-Right Wrist. - Condition is Stable. - Discharge Instructions: Wrist Splint, Eeqb-gy-[id number], Shoulder Pain, Xceh-jm-[id number], Contusion, Ybju-il-Zdvf, Cervical Sprain, Gmzd-[id number], Wrist Pain, Xnaz-mh-Tmwn. - Medication Reconciliation Form, Thank You Letter, Antibiotic Education, Prescription Opioid Use form. - Follow up: Private Physician; When: 1 - 2 days; Reason: Worsening of condition, Recheck today's complaints, Continuance of care, Re-evaluation by your physician. Follow up: Yunior Borja MD; When: 1 - 2 days; Reason: Worsening of condition, Recheck today's complaints. - Problem is new. - Symptoms have improved. Signatures: Dispatcher [employer] EDMS Donato Ayoub Sana Toledo RN RN ll1 Alexey Lowe MD MD 7 Corrections: (The following items were deleted from the chart) 21:05 20:57 01/12/2020 20:57 Discharged to Home. Impression: Fall-Mechanical; Contusion-Right wh Shoulder; Contusion-Head; Cervical Strain; Contusion-Right Wrist. Condition is Stable. Forms are Medication Reconciliation Form, Thank You Letter, Antibiotic Education, Prescription Opioid Use. Follow up: Private Physician; When: 1 - 2 days; Reason: Worsening of condition, Recheck today's complaints, Continuance of care, Re-evaluation by your physician. Follow up: Yunior Borja; When: 1 - 2 days; Reason: Worsening of condition, Recheck today's complaints. Problem is new. Symptoms have improved. mh7
--- NOTE | 2020-01-12 20:57 | ER ---
Nurse's Notes [facility] Name: Gisele Abbott Age: 69 yrs Sex: Female : 1950 Arrival Date: 01/12/2020 Time: 17:19 Bed 13 Private MD: Josué Dejesus R Diagnosis: Fall-Mechanical;Contusion-Right Shoulder;Contusion-Head;Cervical Strain;Contusion-Right Wrist Presentation: 01/11 17:31 Chief complaint: Patient states: Holding laundry basket and hit wall at 1645. Fell into 1 wall and hit head. Denies LOC. Reports right shoulder and right hip pain since. Bruising noted to right wrist. Gait steady. No blood thinners. Coronavirus screen: Proceed with normal triage. Patient denies a cough. Patient denies shortness of breath or difficulty breathing. Patient denies measured and/or subjective temperature greater than 100.4F prior to today's visit. Patient denies travel on a cruise ship or to a country the [facility] currently lists as an affected area. Patient denies contact with known and/or suspected case of COVID-19. Ebola Screen: Patient denies travel to an Ebola-affected area in the 21 days before illness onset. Initial Sepsis Screen: Does the patient meet any 2 criteria? No. Patient's initial sepsis screen is negative. Risk Assessment: Do you want to hurt yourself or someone else? Patient reports no desire to harm self or others. Onset of symptoms was January 12, 2020. 17:31 Method Of Arrival: Ambulatory ll1 17:31 Acuity: ABDELRAHMAN 3 ll1 19:30 Initial Sepsis Screen: Does the patient have a suspected source of infection? No. wh Patient's initial sepsis screen is negative. Historical: - Allergies: 17:34 Codeine; ll1 17:34 Tape; ll1 - PMHx: 17:34 Diabetes - IDDM; Hypertension; stage 3 kidney disease; ll1 - PSHx: 17:34 Cholecystectomy; Left rotator cuff; ll1 - Immunization history:: Flu vaccine is up to date. - Social history:: Smoking status: Patient denies any tobacco usage or history of. Patient/guardian denies using alcohol, street drugs, tobacco products. Screenin:30 Abuse screen: Denies threats or abuse. Denies injuries from another. Nutritional screening: No deficits noted. Tuberculosis screening: No symptoms or risk factors identified. Fall Risk None identified. Assessment: 19:30 General: Appears in no apparent distress. Behavior is calm, cooperative, appropriate for age. Pain: Complains of pain in right wrist and right shoulder and right arm and forehead Pain does not radiate. Pain currently is 5 out of 10 on a pain scale. Quality of pain is described as aching. Neuro: Level of Consciousness is awake, alert, obeys commands, Oriented to person, place, time, situation, Appropriate for age. Cardiovascular: Capillary refill < 3 seconds. Respiratory: Airway is patent Respiratory effort is even, unlabored, Respiratory pattern is regular, symmetrical. GI: Abdomen is flat, non-distended. : No signs and/or symptoms were reported regarding the genitourinary system. EENT: No signs and/or symptoms were reported regarding the EENT system. Derm: Skin is intact, is healthy with good turgor, Skin is pink, warm \T\ dry. normal. Musculoskeletal: Circulation, motion, and sensation intact. 21:00 Reassessment: Patient appears in no apparent distress at this time. No changes from previously documented assessment. Patient and/or family updated on plan of care and expected duration. Pain level reassessed. Patient is alert, oriented x 3, equal unlabored respirations, skin warm/dry/pink. Vital Signs: 17:31 BP 170 / 78; Pulse 66; Resp 18; Temp 98.0; Pulse Ox 98% ; Pain 6/10; ll1 21:00 BP 138 / 77; Pulse 68; Resp 18; Pulse Ox 99% on R/A; ED Course: 17:19 Patient arrived in ED. mr 17:19 Josué Dejesus MD is Private Physician. mr 17:33 Triage completed. ll1 17:34 Arm band placed on Patient notified of wait time. ll1 19:05 Alexey Lowe MD is Attending Physician. 7 19:08 Donato Ayoub is Primary Nurse. 19:30 Patient has correct armband on for positive identification. Bed in low position. Call light in reach. Side rails up X 1. Pulse ox on. NIBP on. 19:34 CT Head C Spine In Process Unspecified. EDMS 19:49 Shoulder Right (2 View) XRAY In Process Unspecified. EDMS 19:49 Humerus Right XRAY In Process Unspecified. EDMS 19:50 Wrist Right 3 View XRAY In Process Unspecified. EDDE 20:54 Yunior Borja MD is Referral Physician. [facility] 21:01 No provider procedures requiring assistance completed. Patient did not have IV access during this emergency room visit. Administered Medications: 20:00 Drug: Tylenol 1000 mg Route: PO; 20:57 Follow up: Response: No adverse reaction; Pain is decreased Outcome: 20:57 Discharge ordered by . [facility] 21:01 Discharged to home ambulatory. 21:01 Condition: stable 21:01 Discharge instructions given to patient, Instructed on discharge instructions, follow up and referral plans. POC Demonstrated understanding of instructions, follow-up care, splint care. 21:05 Patient left the ED. Signatures: Dispatcher [employer] EDDE Tarah Recinos, Donato Sana Toledo RN RN ll1 Alexey Lowe MD MD [facility] Corrections: (The following items were deleted from the chart) 17:36 17:31 Chief complaint: Patient states: Holding laundry basket and hit wall at 1645. ll1 Fell into wall and hit head. Denies LOC. Reports right shoulder and right hip pain since. Bruising noted to right wrist. Gait steady. ll1
[2020-01-12 21:40] VITALS: TEMP 98
[2020-01-12 21:42] VITALS: BP 138/77; O2SAT 99
== END 2020-01-12 21:05 | disposition home or self-care (01) ==
LOC: ER 17:15
DX: S00.93XA Contusion of unspecified part of head, initial encounter (principal); S40.011A Contusion of right shoulder, initial encounter; S60.211A Contusion of right wrist, initial encounter; W01.198A Fall on same level from slipping, tripping and stumbling with subsequent striking against other object, initial encounter; Y93.E2 Activity, laundry; Y92.008 Other place in unspecified non-institutional (private) residence as the place of occurrence of the external cause; Z88.6 Allergy status to analgesic agent
CPT/HCPCS: 70450; 72125; 99283

== ENCOUNTER 2021-06-07 04:33 | Emergency (ER) | payer OTHER ==
--- OUTSIDE RECORDS SUMMARY | 2021-06-07 04:36 | XMS REPORT | Continuity of Care Document ---
:1950 Author Organization [facility] Address [address] [place] [address] Care Team Providers Name Role Phone JAKE GAUTAM Attending Clinician Unavailable Problems This patient has no known problems. Allergies, Adverse Reactions, Alerts This patient has no known allergies or adverse reactions. Medications This patient has no known medications. Procedures This patient has no known procedures. Results Test Description Test Time Test Comments Results Result Sourc e Comments MM, STEREOTACTIC Reason for Addendum BeginsMRN#: BIOPSY, BREAST, 1 Exam:->microcalcif [id number]: RIGHT 10:24:00 ications of breast 08/02/2018 Gagan Guerra M.D. 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 Addendum EndsMRN#: [id number] - MM, STEREOTACTIC BIOPSY, BREAST, RIGHTSTEREOTACTIC GUIDED [...] correct location, six specimens were obtained using FanplayrIVA device. A clip was inserted into the [...] the calcifications. Gagan Guerra M.D. pth/:07/31/2018 14:23:26 Engineering Intern: Winifred WAGGONER(Ирина)(M), [facility] [id number] , STEREOTACTIC Reason for Addendum BeginsN#: BIOPSY, BREAST, 1 Exam:->macrocalcif [id number]: LEFT 10:23:00 ications of breast 08/02/2018 Gagan Guerra M.D. 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 Addendum EndsN#: [id number] - MM, STEREOTACTIC BIOPSY, BREAST, LEFTSTEREOTACTIC GUIDED [...] correct location, six specimens were obtained using FanplayrIVA device. A clip was inserted into the [...] the calcifications. Gagan Guerra M.D. pth/:07/31/2018 14:26:29 Engineering Intern: Winifred MANCINI)(Vitor), [facility] [id number] UE EXAM 2018-07-04 Surgical Pathology 1 Report 11:58:00 Case: [id number] Authorizing Provider: Gagan Guerra MD Collected: 07/31/2018 1320 Ordering Location: [facility] Received: 07/31/2018 1406 Pathologist: Vani Real MD Specimens: A) - [...] COARSE CALCIFICATIONS Signing Pathologist Direct Phone Line: [phone] ally signed by Vani Real MD on 08/01/2018 at 11:58 Curiel the sections examined, no atypical hyperplasia or carcinoma is identified.A. [id number]. [id number] hyalinizing lesions A. Left posterior lower inner [...] is entirely submitted in B1 and B2. CG/nir Sanchez Performed. MM, DIGITAL, 2018-07-04 Left breast MRN#: UNILATERAL, 0 calcifications [id number] - CONFER JESS, 14:27:00 MM, DIGITAL, MAMMO, [...] pathology results. Gagan Guerra M.D. pth/:07/31/2018 14:27:38 Engineering Intern: Winifred DU (R)), [facility] Mammogram BI-RADS: Post-procedure mammogram for marker placement [id number] , MAMMO, 2018-07-04 Reason for MRN#: SPECIMEN, 0 exam:->Left breast [id number] - RADIOGRAPH, LEFT 14:26:00 calcifications MM, MAMMO, SPECIMEN, RADIOGRAPH, LEFTSPECIMEN LEFT BREAST: 07/31/2018Six stereotactic guided biopsy specimens were imaged for the area of calcifications located in the left breast at 8 o'clock posterior depth. IMPRESSION: SPECIMENThe imaged specimens includes the calcifications. Gagan Guerra M.D. pth/:07/31/2018 14:26:58 Engineering Intern: Winifred DU (R)), [facility] [id number] , DIGITAL, 2018-07-04 Right breast MRN#: UNILATERAL, 0 calcifications [id number] - CONFER JESS, 14:24:00 MM, DIGITAL, MAMMO, [...] pathology results. Gagan Guerra M.D. pth/:07/31/2018 14:24:55 Engineering Intern: Winifred DU (R)), [facility] Mammogram BI-RADS: Post-procedure mammogram for marker placement [id number] , MAMMO, 2018-07-04 Reason for MRN#: SPECIMEN, 0 exam:->Right [id number] - RADIOGRAPH, RIGHT 14:23:00 breast MM, MAMMO, SPECIMEN, calcifications RADIOGRAPH, RIGHTSPECIMEN RIGHT BREAST: 07/31/2018Six stereotactic guided biopsy specimens were imaged for the area of calcifications located in the right breast at 9 o'clock posterior depth. IMPRESSION: SPECIMENThe imaged specimens includes the calcifications. Gagan Guerra M.D. pth/:07/31/2018 14:23:54 Engineering Intern: Winifred DU (R)), [facility] [id number]
[2021-06-07] MEDS ORDERED: NA CHLORIDE 0.9% 250 ML ONE (06:38)
[2021-06-07 06:54] LABS: Urine Blood Negative (Negative); Urine Glucose Negative (Negative); Urine Protein Trace (Negative); Urine Specific Gravity 1.015 (1.005-1.030)
[2021-06-07 06:57] LABS: Protime INR 0.87
[2021-06-07 07:01] LABS: Absolute Lymphocytes (CBC) 0.9 K/uL (0.7-4.9); Basophils % 0.3 % (0-1.3); Hematocrit 36.2 % (36.0-45.0); Lymphocytes % 10.4 % (15.3-44.8); MPV 9.2 fL (7.6-11.3); RBC Red Blood Cell Count 4.17 M/uL (3.86-4.86)
[2021-06-07 07:14] LABS: ALT/SGPT 24 U/L (12-78); AST/SGOT 20 U/L (15-37); Albumin 3.6 g/dL (3.4-5.0); Alkaline Phosphatase 116 U/L (45-117); BUN Blood Urea Nitrogen 59 mg/dL (7-18); Bicarbonate 17 mmol/L (21-32); Bilirubin Direct < 0.1 mg/dL (0-0.2); Bilirubin Total 0.2 mg/dL (0.2-1.0); Glucose Level 220 mg/dL (74-106); Magnesium 2.1 mg/dL (1.8-2.4); NT PRO-BNP 433 pg/mL (<125); Potassium 5.1 mmol/L (3.5-5.1); Protein, Total 7.6 g/dL (6.4-8.2); Sodium Level 137 mmol/L (136-145); Troponin (Emerg Dept Use Only) < 0.02 ng/mL (0.0-0.045)
--- NOTE | 2021-06-07 07:27 | RAD REPORT ---
EXAM DESCRIPTION: CT - Head Brain Wo Cont - 06/07/2021 7:09 am CLINICAL HISTORY: WEAKNESS COMPARISON: No comparisons TECHNIQUE: All CT scans are performed using dose optimization technique as appropriate and may inclu de automated exposure control or mA/KV adjustment according to patient size. FINDINGS: No intracranial hemorrhage, hydrocephalus or extra-axial fluid collection.No areas of brai n edema or evidence of midline shift. Cerebral atrophy with chronic small vessel ischemic changes. The paranasal sinuses and mastoids are clear. The calvarium is intact. IMPRESSION: No acute intracranial abnormality.
--- NOTE | 2021-06-07 07:28 | RAD REPORT ---
EXAM DESCRIPTION: RAD - Chest Single View - 06/07/2021 7:05 am CLINICAL HISTORY: weakness COMPARISON: Chest Pa And Lat (2 Views) dated 04/08/2020; Abdomen Exam Complete dated 09/07/2020 FINDINGS: Lines: None. Lungs: No evidence of edema or pneumonia. Prominence of the pulmonary vasculature accentuated by low lung volumes. Pleural: No significant pleural effusions or pneumothorax. Cardiac: Enlarged cardiac silhouette which may be accentuated by low lung volumes. Bones: No acute fractures. Other: IMPRESSION: Low lung volumes without definite acute process identified.
--- NOTE | 2021-06-07 07:32 | RAD REPORT ---
EXAM DESCRIPTION: US - Extrem Venous W Compress Justyn - 06/07/2021 7:19 am CLINICAL HISTORY: Leg pain COMPARISON: None. TECHNIQUE: Real-time sonographic evaluation of the bilateral lower extremity deep venous systems was performed. FINDINGS: Normal compressibility, flow augmentation, phasic flow and spontaneous flow is identified in both the left and right lower extremity deep venous systems. No intraluminal filling defects seen. 3.4 cm cloud cyst in the right popliteal fossa. IMPRESSION: No DVT in either lower extremity.
--- NOTE | 2021-06-07 08:52 | EDPHYS ---
Physician Documentation [facility] Name: Gisele Abbott Age: 71 yrs Sex: Female : 1950 Arrival Date: 06/07/2021 Time: 04:37 Bed 18 Private MD: ED Physician Perico Canales HPI: 06/07 06:12 This 71 yrs old Female presents to ER via EMS with complaints of Weakness. m 06:12 The patient has experienced near-syncope. Onset: The symptoms/episode began/occurred jmm this morning. Duration: This was a single episode. Associated injury: The patient did not suffer any apparent associated injury. Associated signs and symptoms: Pertinent positives: weakness, Pertinent negatives: abdominal pain, chest pain, vertigo. This is this is a 71-year-old female with history of diabetes mellitus, hypertension, chronic kidney disease the presents emerged department with complaints of cramping to both legs and a near syncopal episode which occurred earlier this morning approximately 2 hours ago. Patient states over the past few days she has had ongoing generalized weakness. Patient denies chest pain, shortness of breath, abdominal pain, unilateral weakness. denies any noticeable slurred speech. Patient came to the ER this morning after developing some cramping this evening in both of her legs. Patient attempted to get out of bed's having difficulty walking, patient states she nearly collapsed and describes her dizziness as a near nearly syncopal episode. states that the patient over the past few days has been more active due to preparing for [place]. States that yesterday she was actually having elevated blood pressure and they called their PCP. Denies any change in her blood pressure medication. Historical: - Allergies: 05:18 Codeine; as6 - PMHx: 05:18 Diabetes - IDDM; Hypertension; Stage 3 Kidney Disease; as6 - PSHx: 05:18 Cholecystectomy; as6 - Immunization history:: Adult Immunizations up to date. - Social history:: Smoking status: Patient denies any tobacco usage or history of. ROS: 06:12 Cardiovascular: Negative for chest pain, palpitations, and edema, Respiratory: Negative jm for shortness of breath, cough, wheezing, and pleuritic chest pain. 06:12 Constitutional: Positive for fatigue. 06:12 MS/extremity: Positive for pain. 06:12 Neuro: Positive for weakness. 06:12 All other systems are negative. Exam: 06:12 Head/Face: atraumatic. Eyes: EOMI, no conjunctival erythema appreciated ENT: Moist jm Mucus Membranes Neck: Trachea midline, Supple Chest/axilla: Normal chest wall appearance and motion. Cardiovascular: Regular rate and rhythm. No edema appreciated Respiratory: Normal respirations, no respiratory distress appreciated Abdomen/GI: Non distended, soft Back: Normal ROM Skin: General appearance color normal 06:12 Constitutional: The patient appears in no acute distress, alert, awake. 06:12 Musculoskeletal/extremity: ROM: intact in all extremities. 06:12 Skin: Appearance: Color: normal in color. 06:12 Neuro: Orientation: is normal, Mentation: is normal, Memory: is normal. 06:12 Psych: Behavior/mood is pleasant, cooperative. Vital Signs: 05:15 BP 117 / 48; Pulse 71; Resp 17 S; Pulse Ox 95% on R/A; Weight 85.28 kg (R); Height 5 as6 ft. 1 in. (154.94 cm); Pain 0/10; 05:47 BP 98 / 52; Pulse 58; Resp 12 S; Pulse Ox 95% on R/A; as6 07:24 BP 110 / 53; Pulse 59; Resp 19; Temp 97.4; Pulse Ox 98% ; ll1 08:33 BP 107 / 52; Pulse 64; Resp 18; Pulse Ox 100% on R/A; Pain 0/10; ll1 09:12 BP 111 / 90; Pulse 70; Resp 17; Pulse Ox 100% ; Pain 0/10; ll1 05:15 Body Mass Index 35.52 (85.28 kg, 154.94 cm) as6 MDM: 06:12 Patient medically screened. [facility] 08:51 Data reviewed: vital signs, nurses notes. Counseling: I had a detailed discussion with rajwinder the patient and/or guardian regarding: the historical points, exam findings, and any diagnostic results supporting the discharge/admit diagnosis, lab results, radiology results, the need for outpatient follow up, to return to the emergency department if symptoms worsen or persist or if there are any questions or concerns that arise at home. 06/07 05:11 Order name: Glucose, Ancillary Testing; Complete Time: 05:17 EDMS 06/07 06:10 Order name: Basic Metabolic Panel; Complete Time: :18 [facility] 06/07 06:10 Order name: CBC with Diff; Complete Time: 07:07 [facility] 06/07 06:10 Order name: LFT's; Complete Time: 07:18 [facility] 06/07 06:10 Order name: Magnesium; Complete Time: 07:18 [facility] 06/07 06:10 Order name: NT PRO-BNP; Complete Time: 07:18 [facility] 06/07 06:10 Order name: PT-INR; Complete Time: 07:07 [facility] 06/07 06:10 Order name: Troponin (emerg Dept Use Only); Complete Time: 07:18 [facility] 06/07 06:10 Order name: XRAY Chest (1 view); Complete Time: 07:30 [facility] 06/07 06:11 Order name: CT Head Brain wo Cont; Complete Time: 07:30 [facility] 06/07 06:12 Order name: US Extremity Venous W Compression Justyn; Complete Time: 07:32 [facility] 06/07 06:19 Order name: SARS-COV-2 RT PCR (Document "Date of Onset" if Symptomatic); Complete Time: jm 07:59 06/07 06:53 Order name: Urine Dipstick-Ancillary; Complete Time: 07:07 [facility] 06/07 06:10 Order name: EKG; Complete Time: 06:11 [facility] 06/07 06:10 Order name: Cardiac monitoring; Complete Time: 06:29 [facility] 06/07 06:10 Order name: EKG - Nurse/Tech; Complete Time: 07:21 [facility] 06/07 06:10 Order name: IV Saline Lock; Complete Time: 06:29 [facility] 06/07 06:10 Order name: Labs collected and sent; Complete Time: 06:53 [facility] 06/07 06:10 Order name: O2 Per Protocol; Complete Time: 06:29 [facility] 06/07 06:10 Order name: O2 Sat Monitoring; Complete Time: 06:29 [facility] 06/07 06:10 Order name: Urine Dipstick-Ancillary (obtain specimen); Complete Time: 06:53 [facility] 06/07 08:10 Order name: Misc. Order: ambulate; Complete Time: 08:29 jmm Administered Medications: 06:53 Drug: NS 0.9% 250 ml Route: IV; Rate: bolus; Site: left antecubital; as6 07:14 Follow up: Response: No adverse reaction; IV Status: Completed infusion; IV Intake: as6 250ml Disposition Summary: 06/07/21 08:51 Discharge Ordered Location: Home rajwinder Condition: Stable rajwinder Diagnosis - Dehydration leticia Followup: rajwinder - With: Private Physician - When: Today - Reason: Recheck today's complaints, Continuance of care, Re-evaluation by your physician Discharge Instructions: - Discharge Summary Sheet rajwinder - Dehydration, Elderly rajwinder Forms: - Medication Reconciliation Form leticia - Thank You Letter rajwinder - Antibiotic Education rajwinder - Prescription Opioid Use leticia Signatures: Dispatcher [employer] Taiwo Stevenson PA PA jmm Attema, Lee, ELEMENTARY SPANISH TEACHER-C ELEMENTARY SPANISH TEACHER-Cla1 Todd Ferguson RN RN as6
--- NOTE | 2021-06-07 08:52 | ER ---
Nurse's Notes [facility] Name: Gisele Abbott Age: 71 yrs Sex: Female : 1950 Arrival Date: 06/07/2021 Time: 04:37 Bed 18 Private MD: Diagnosis: Dehydration Presentation: 06/07 05:15 Chief complaint: EMS states: called out for weakness, numbness to BLE, EMS states as6 negative on the NIHSS. Coronavirus screen: At this time, the client does not indicate any symptoms associated with coronavirus-19. Ebola Screen: No symptoms or risks identified at this time. Initial Sepsis Screen: Does the patient meet any 2 criteria? No. Patient's initial sepsis screen is negative. Does the patient have a suspected source of infection? No. Patient's initial sepsis screen is negative. Risk Assessment: Do you want to hurt yourself or someone else? Patient reports no desire to harm self or others. Onset of symptoms was June 07, 2021. Care prior to arrival: IV initiated. 20 GA, in the right antecubital area, Glucose check: 86. 05:15 Method Of Arrival: EMS: [facility] as6 05:15 Acuity: ABDELRAHMAN 3 as6 Historical: - Allergies: 05:18 Codeine; as6 - PMHx: 05:18 Diabetes - IDDM; Hypertension; Stage 3 Kidney Disease; as6 - PSHx: 05:18 Cholecystectomy; as6 - Immunization history:: Adult Immunizations up to date. - Social history:: Smoking status: Patient denies any tobacco usage or history of. Screenin:20 Abuse screen: Denies threats or abuse. Nutritional screening: No deficits noted. as6 Tuberculosis screening: No symptoms or risk factors identified. Fall Risk Fall in past 12 months (25 points). IV access (20 points). Gait- Weak (10 pts.). Mental Status- Oriented to own ability (0 pts). Total Martinez Fall Scale indicates High Risk Score (45 or more points). Side Rails Up X 2 Placed Close to Nursing Station Frequent Obs/Assessments Occuring As available patient and family educated on Fall Prevention Program and Strategies. Assessment: 05:19 General: Appears in no apparent distress. comfortable, Behavior is calm, cooperative. as6 Pain: Denies pain. Neuro: Level of Consciousness is awake, alert, obeys commands, Oriented to person, place, time, situation, Reports numbness in right leg and left leg weakness in right leg and left leg. Cardiovascular: Capillary refill < 3 seconds Patient's skin is warm and dry. Respiratory: Airway is patent Trachea midline Respiratory effort is even, unlabored, Respiratory pattern is regular, symmetrical. Derm: Skin is intact, is healthy with good turgor. 07:14 Reassessment: Patient and/or family updated on plan of care and expected duration. Pain as6 level reassessed. Patient is alert, oriented x 3, equal unlabored respirations, skin warm/dry/pink. 08:00 Reassessment: No changes from previously documented assessment. Patient and/or family ll1 updated on plan of care and expected duration. Pain level reassessed. Patient is alert, oriented x 3, equal unlabored respirations, skin warm/dry/pink. 08:33 Reassessment: No changes from previously documented assessment. Patient and/or family ll1 updated on plan of care and expected duration. Pain level reassessed. Patient is alert, oriented x 3, equal unlabored respirations, skin warm/dry/pink. 09:10 Reassessment: No changes from previously documented assessment. Patient and/or family ll1 updated on plan of care and expected duration. Pain level reassessed. Patient is alert, oriented x 3, equal unlabored respirations, skin warm/dry/pink. Vital Signs: 05:15 BP 117 / 48; Pulse 71; Resp 17 S; Pulse Ox 95% on R/A; Weight 85.28 kg (R); Height 5 as6 ft. 1 in. (154.94 cm); Pain 0/10; 05:47 BP 98 / 52; Pulse 58; Resp 12 S; Pulse Ox 95% on R/A; as6 07:24 BP 110 / 53; Pulse 59; Resp 19; Temp 97.4; Pulse Ox 98% ; ll1 08:33 BP 107 / 52; Pulse 64; Resp 18; Pulse Ox 100% on R/A; Pain 0/10; ll1 09:12 BP 111 / 90; Pulse 70; Resp 17; Pulse Ox 100% ; Pain 0/10; ll1 05:15 Body Mass Index 35.52 (85.28 kg, 154.94 cm) as6 ED Course: 04:37 Patient arrived in ED. bp1 04:50 Todd Ferguson, LAKESHA is Primary Nurse. as6 05:18 Triage completed. as6 05:19 Arm band placed on. as6 05:21 Bed in low position. Call light in reach. Side rails up X2. pvc monitor on. Pulse as6 ox on. NIBP on. 06:09 Taiwo Merrill PA is PHCP. [facility] 06:09 Perico Canales MD is Attending Physician. jmm 07:05 XRAY Chest (1 view) In Process Unspecified. EDMS 07:08 CT Head Brain wo Cont In Process Unspecified. EDMS 07:14 Maintain EMS IV. Dressing intact. Good blood return noted. Site clean \T\ dry. Gauge \T\ as 6 site: 20 g l ac. 07:19 US Extremity Venous W Compression Justyn In Process Unspecified. EDMS 08:11 Primary Nurse role handed off by Todd Ferguson, RN ll1 08:11 Sana Toledo RN is Primary Nurse. ll1 08:32 Gait steady to restroom. No dizziness or weakness. ll1 09:10 No provider procedures requiring assistance completed. IV discontinued, intact, ll1 bleeding controlled, No redness/swelling at site. Pressure dressing applied. Administered Medications: 06:53 Drug: NS 0.9% 250 ml Route: IV; Rate: bolus; Site: left antecubital; as6 07:14 Follow up: Response: No adverse reaction; IV Status: Completed infusion; IV Intake: as6 250ml Intake: 07:14 IV: 250ml; Total: 250ml. as6 Outcome: 08:51 Discharge ordered by MD. jmm 09:13 Patient left the ED. iw 09:13 Discharged to home via wheelchair. ll1 09:13 Condition: stable 09:13 Discharge instructions given to patient, Instructed on discharge instructions, follow up and referral plans. Demonstrated understanding of instructions, follow-up care. Signatures: Dispatcher [employer] EDCA Taiwo Merrill PA PA jmm Williams, Irene, RN RN iw Sana Toledo RN RN ll1 Amaya Browne bp1 Todd Ferguson RN RN as6 Corrections: (The following items were deleted from the chart) 07:38 07:24 BP 113 / 50; Pulse 107bpm; Resp 20bpm; Temp 97.4F; ll1 ll1
[2021-06-07 09:21] VITALS: TEMP 97.4
[2021-06-07 09:23] VITALS: BP 107/52; O2SAT 100
--- NOTE | 2021-06-08 12:06 | EKG ---
Test Date: 2021-06-07 Test Time: 07:16:03 Business Banking Sales Assistant: SUMIT MEASUREMENT RESULTS: Intervals: Rate: 67 NV: 194 QRSD: 74 QT: 394 QTc: 416 Duarte: P: 62 NV: 194 QRS: -11 T: 50 INTERPRETIVE STATEMENTS: Normal sinus rhythm Normal ECG Compared to ECG 04/22/2011 08:57:48 Sinus arrhythmia no longer present Electronically Signed On 06-08-21 12:03:00 HEDIS ABSTRACTOR by Frankie Cosby
== END 2021-06-07 09:13 | disposition home or self-care (01) ==
LOC: ER 04:33
DX: E86.0 Dehydration (principal); E11.22 Type 2 diabetes mellitus with diabetic chronic kidney disease; I12.9 Hypertensive chronic kidney disease with stage 1 through stage 4 chronic kidney disease, or unspecified chronic kidney disease; N18.30 Chronic kidney disease, stage 3 unspecified; Z88.5 Allergy status to narcotic agent; Z20.822 Contact with and (suspected) exposure to COVID-19
CPT/HCPCS: 96365; 93005; 85025; 80048; 36415; 83735; 85610; 82947; 80076; 81003; 84484; 83880; 70450; 71045; 93970; 99284; U0003; J7050

== ENCOUNTER 2024-05-31 18:31 | Inpatient (IN) | payer OTHER ==
[2024-05-31] MEDS ORDERED: TRAMADOL HCL 50 MG TAB ONE (19:52)
[2024-05-31] MEDS ORDERED: ONDANSETRON 4 MG/2 ML VIAL ONE (19:52)
[2024-05-31] MEDS ORDERED: METOCLOPRAMIDE 5 MG TAB ONE (19:52)
--- NOTE | 2024-05-31 20:08 | RAD REPORT ---
EXAM: CT CHEST, ABDOMEN AND PELVIS WITHOUT CONTRAST CLINICAL INDICATION: Female, 74 years old right abdominal pain TECHNIQUE: CT chest, abdomen and pelvis was performed, without IV contrast, as per department protoco l. Axial, sagittal and coronal reconstructions were obtained. One or more of the following dose reduction techniques were used: Automated exposure control, adjustment of the mA and/or kV according to the patient size, and/or iterative reconstruction. Unless otherwise specified, incidental findings do not require dedicated imaging follow-up. [id number]. COMPARISON: No prior exam. FINDINGS: The lack of intravenous contrast limits the sensitivity of this exam for evaluation of solid visceral organs, vascular structures, and retroperitoneum. Chest: LOWER NECK/CHEST WALL: Visualized thyroid gland and soft tissues are normal. LUNGS AND AIRWAYS: 5 mm solid right upper lobe pulmonary nodule is nonspecific. PLEURA: No pleural effusion. No pneumothorax. Hemidiaphragms are normally positioned. MEDIASTINUM AND LYMPH NODES: No mediastinal mass or fluid collection. Normal size mediastinal, hilar, and axillary lymph nodes. Mild thickened distal esophagus which may reflect esophagitis. THORACIC AORTA: Normal caliber and configuration. PULMONARY ARTERIES: Normal caliber. HEART: Coronary artery calcifications. Aortic valve calcifications. Abdomen/Pelvis LIVER: Normal in size and contour. No focal lesion. GALLBLADDER/BILE DUCTS: Cholecystomy PANCREAS: No mass, ductal dilation, or kavon-pancreatic fluid. SPLEEN: Normal size. No focal lesion. ADRENALS: Normal; no mass. KIDNEYS AND URETERS: Left renal scarring. No hydronephrosis. No renal or ureteral calculi. Left urete ral fullness. GASTROINTESTINAL TRACT: Stomach is non-dilated. Small bowel has normal course and caliber. No colonic wall thickening or pericolonic inflammatory changes. Normal appendix. Moderate colonic stool. PERITONEUM: No free fluid. LYMPH NODES: No lymphadenopathy. ABDOMINAL AORTA AND OTHER VESSELS: Normal caliber aorta and IVC. URINARY BLADDER: Normal contour. REPRODUCTIVE ORGANS: Calcified uterine fibroids. MUSCULOSKELETAL: No acute or suspicious osseous abnormality. Multilevel degenerative changes are pres ent in the spine. ADDITIONAL FINDINGS: None IMPRESSION: No acute or significant abnormalities in the chest, abdomen, or pelvis. 5 mm right upper lobe pulmonary nodule. No routine follow-up in either low or high risk patients. Note: These guidelines do not apply to patients younger than 35 years, immunocompromised patients, an d patients with cancer. Follow-up in patients with significant comorbidities as clinically warranted. For lung cancer screening, adhere to Lung-RADS guidelines. Reference: Radiology. 2017 Dec; 284(1):228-243
[2024-05-31 20:27] LABS: Specific Gravity 1.008 (1.005-1.030); Sqamous Epithelial <5 /HPF (None Seen); Urine Bacteria None Seen /HPF (<20); Urine Bilirubin NEGATIVE (Negative); Urine Blood Trace (Negative); Urine Clarity Clear (Clear); Urine Color Colorless (Yellow); Urine Culture Reflex Order NOT NEEDED; Urine Glucose 4+ (Over) (Negative); Urine Ketones NEGATIVE (Negative); Urine Microscopic Reflex YN ORDER UMIC; Urine Nitrite NEGATIVE (Negative); Urine Protein TRACE (Negative); Urine RBC <5 /HPF (None Seen); Urine Urobilinogen Normal (Normal); Urine WBC None Seen /HPF (<5); Urine pH 5.5 (5.0-7.0)
[2024-05-31 20:30] LABS: Absolute Basophils 0.1 K/uL (0-0.5); Absolute Eosinophils 0.1 K/uL (0-0.5); Absolute Lymphocytes (CBC) 1.2 K/uL (0.7-4.9); Absolute Monocytes 0.5 K/uL (0.1-1.3); Absolute Neutrophil 9.3 K/uL (1.8-8.0); Basophils % 0.7 % (0-1.3); Eosinophils % 1.1 % (0-4.4); Hematocrit 38.9 % (36.0-45.0); Hemoglobin 12.7 g/dL (12.0-15.0); Lymphocytes % 10.6 % (15.3-44.8); MCH 29.6 pg (27.0-35.0); MCHC 32.7 g/dL (32.0-36.0); MCV 90.5 fL (80-100); Monocytes % 4.3 % (3.3-12.3); Neutrophils % 83.3 % (41.7-73.7); Platelets 216 thou/uL (152-406); Red Cell Distribution Width 13.8 % (12.1-15.2)
[2024-05-31 20:34] LABS: Albumin 3.6 g/dL (3.4-5.0); Albumin/Globulin Ratio 0.8 (1.1-1.8); Anion Gap 10.8 mEq/L (5.0-15.0); Bilirubin Total 0.2 mg/dL (0.2-1.0); Globulin 4.4 g/dL (2.3-3.5); Potassium 4.8 mEq/L (3.5-5.1)
--- NOTE | 2024-05-31 21:52 | EDPHYS ---
Physician Documentation [facility] Name: Gisele Abbott Age: 74 yrs Sex: Female : 1950 Arrival Date: 05/31/2024 Time: 18:31 Bed 8 Private MD: ED Physician Law Allen HPI: 05/31 19:10 This 74 yrs old Female presents to ER via Unassigned with complaints of Flank sp4 Pain - Right. 06/01 18:32 74-year-old female presents with complaint of the right flank pain for the past 2 weeks.sp4 Historical: - Allergies: 05/31 19:21 Codeine; tm6 - PMHx: 19:21 Diabetes - IDDM; Hypertension; Stage 3 Kidney Disease; tm6 - PSHx: 19:21 Cholecystectomy; tm6 - Immunization history:: Flu vaccine is up to date. - Infectious Disease History:: Denies. - Social history:: Smoking status: Patient denies any tobacco usage or history of. - Family history:: not pertinent. ROS: 06/01 18:32 Constitutional: Negative for fever, chills, and weight loss, Positive for right flank sp4 pain All other systems are negative, Exam: 18:32 Constitutional: This is a well developed, well nourished patient who is awake, alert, sp4 and in no acute distress. Head/Face: Normocephalic, atraumatic. Eyes: Pupils equal round and reactive to light, extra-ocular motions intact. Lids and lashes normal. Conjunctiva and sclera are not injected. Cornea within normal limits. Periorbital areas with no swelling, redness, or edema. ENT: Nares patent. No nasal discharge, no septal abnormalities noted. Tympanic membranes are normal and external auditory canals are clear. Oropharynx with no redness, swelling, or masses, exudates, or evidence of obstruction, uvula midline. Mucous membranes moist. Neck: Trachea midline, no thyromegaly or masses palpated, and no cervical lymphadenopathy. Supple, full range of motion without nuchal rigidity, or vertebral point tenderness. Chest/axilla: Normal chest wall appearance and motion. Nontender with no deformity. No lesions are appreciated. Cardiovascular: Regular rate and rhythm with a normal S1 and S2. No gallops, murmurs, or rubs. Normal PMI, no JVD. No pulse deficits. Respiratory: Lungs have equal breath sounds bilaterally, clear to auscultation and percussion. No rales, rhonchi or wheezes noted. No increased work of breathing, no retractions or nasal flaring. Abdomen/GI: Soft, with normal bowel sounds. No distension or tympany. No guarding or rebound. No evidence of tenderness throughout. Back: No spinal tenderness. No costovertebral tenderness. Skin: Warm, dry with normal turgor. Normal color with no rashes, no lesions, and no evidence of cellulitis. MS/ Extremity: Pulses equal, no cyanosis. Neurovascular intact. Full, normal range of motion. Neuro: Awake and alert, GCS 15, oriented to person, place, time, and situation. Cranial nerves II-XII grossly intact. Motor strength 5/5 in all extremities. Sensory grossly intact. Psych: Awake, alert, with orientation to person, place and time. Behavior, mood, and affect are within normal limits 18:39 ECG was reviewed by the Attending Physician. EG at 2211, normal sinus rhythm rate 78 sp4 Vital Signs: 05/31 19:19 BP 175 / 73; Pulse 83; Resp 18; Temp 98.4(O); Pulse Ox 100% on R/A; MAP 104 mmHg; tm6 Weight 80.74 kg; Height 5 ft. 1 in. ; Pain 9/10; 22:28 BP 138 / 64; Pulse 73; Resp 18; Pulse Ox 97% ; cp4 19:19 Body Mass Index 33.63 (80.74 kg, 154.94 cm) tm6 19:19 Pain Scale: Adult tm6 [place] Coma Score: 06/01 18:32 Eye Response: spontaneous(4). Motor Response: obeys commands(6). Verbal Response: sp4 oriented(5). Total: 15. MDM: 05/31 19:17 Medical Screening Exam initiated sp4 21:36 ED course: CLINICAL INDICATION: Female, 74 years old right abdominal pain TECHNIQUE: CT sp4 chest, abdomen and pelvis was performed, without IV contrast, as per department protocol. Axial, sagittal and coronal reconstructions were obtained. One or more of the following dose reduction techniques were used: Automated exposure control, adjustment of the mA and/or kV according to the patient size, and/or iterative reconstruction. Unless otherwise specified, incidental findings do not require dedicated imaging follow-up. [id number]. COMPARISON: No prior exam. FINDINGS: The lack of intravenous contrast limits the sensitivity of this exam for evaluation of solid visceral organs, vascular structures, and retroperitoneum. Chest: LOWER NECK/CHEST WALL: Visualized thyroid gland and soft tissues are normal. LUNGS AND AIRWAYS: 5 mm solid right upper lobe pulmonary nodule is nonspecific. PLEURA: No pleural effusion. No pneumothorax. Hemidiaphragms are normally positioned. MEDIASTINUM AND LYMPH NODES: No mediastinal mass or fluid collection. Normal size mediastinal, hilar, and axillary lymph nodes. Mild thickened distal esophagus which may reflect esophagitis. THORACIC AORTA: Normal caliber and configuration. PULMONARY ARTERIES: Normal caliber. HEART: Coronary artery calcifications. Aortic valve calcifications. Abdomen/Pelvis LIVER: Normal in size and contour. No focal lesion. GALLBLADDER/BILE DUCTS: Cholecystomy PANCREAS: No mass, ductal dilation, or kavon-pancreatic fluid. SPLEEN: Normal size. No focal lesion. ADRENALS: Normal; no mass. KIDNEYS AND URETERS: Left renal scarring. No hydronephrosis. No renal or ureteral calculi. Left ureteral fullness. GASTROINTESTINAL TRACT: Stomach is non-dilated. Small bowel has normal course and caliber. No colonic wall thickening or pericolonic inflammatory changes. Normal appendix. Moderate colonic stool. PERITONEUM: No free fluid. LYMPH NODES: No lymphadenopathy. ABDOMINAL AORTA AND OTHER VESSELS: Normal caliber aorta and IVC. URINARY BLADDER: Normal contour. RADIOLOGY SERVICES REPORT REPRODUCTIVE ORGANS: Calcified uterine fibroids. MUSCULOSKELETAL: No acute or suspicious osseous abnormality. Multilevel degenerative changes are present in the spine. ADDITIONAL FINDINGS: None IMPRESSION: No acute or significant abnormalities in the chest, abdomen, or pelvis. 5 mm right upper lobe pulmonary nodule. No routine follow-up in either low or high risk patients. Note: These guidelines do not apply to patients younger than 35 years, immunocompromised patients, . 06/01 18:32 Differential diagnosis: nephrolithiasis, pyelonephritis, UTI, diverticulitis, sp4 pancreatitis. Data reviewed: vital signs, old medical records, lab test result(s), radiologic studies, CT scan. 05/31 19:25 Order name: CBC with Diff sp4 05/31 19:25 Order name: CMP; Complete Time: 21:34 sp4 05/31 19:25 Order name: Lipase; Complete Time: 21:34 sp4 05/31 19:25 Order name: Urinalysis w/ reflexes; Complete Time: 21:34 sp4 05/31 21:52 Order name: Troponin High Sensitivity 4 05/31 21:52 Order name: BNP [facility] 05/31 21:52 Order name: TSH sp4 05/31 22:11 Order name: CBC Smear Scan EDAL 05/31 22:45 Order name: Urinalysis w/ reflexes EDAL 05/31 22:45 Order name: Lipid Profile EDAL 05/31 22:45 Order name: Lipid Profile EDAL 05/31 22:45 Order name: CBC with Automated Diff EDMS 05/31 22:45 Order name: Comprehensive Metabolic Panel EDAL 05/31 22:45 Order name: Liver (Hepatic) Function EDAL 05/31 22:46 Order name: Lipase EDAL 05/31 22:46 Order name: Lactic Dehydrogenase EDAL 05/31 22:47 Order name: C-Reactive Protein EDAL 05/31 19:26 Order name: CT Chest Abdomen Pelvis W/O Contrast; Complete Time: 21:34 sp4 05/31 21:52 Order name: EKG; Complete Time: 21:52 4 05/31 19:25 Order name: IV Saline Lock; Complete Time: 20:20 sp4 05/31 19:25 Order name: Labs collected and sent; Complete Time: 20:20 sp4 05/31 21:52 Order name: EKG - Nurse/Tech; Complete Time: 22:13 sp4 EC/30 22:11 Rate is 78 beats/min. Rhythm is regular, Normal Sinus Rhythm. QRS Bryant is Normal. MD sp4 interval is normal. QRS interval is normal. QT interval is normal. No Q waves. T waves are Normal. No ST changes noted. Clinical impression: No evidence of ischemia. Interpreted by me. Reviewed by me. Administered Medications: 19:26 CANCELLED (Physician Discretion): TORadol - [id number] mg IVP once sp4 20:20 Drug: Ondansetron IVP 4 mg IVP once; over 2 minutes Route: IVP; Site: left antecubital; lg3 22:02 Follow up: Response: No adverse reaction cp4 20:20 Drug: traMADol PO 50 mg PO once Route: PO; lg3 22:01 Follow up: Response: No adverse reaction; Pain is decreased cp4 20:20 Drug: MetoCLOPramide PO 10 mg PO once Route: PO; lg3 22:00 Follow up: Response: No adverse reaction cp4 22:14 Drug: NS 0.9% IV 500 ml IV at bolus once; to be given as a bolus over 30 minutes Route: cp4 IV; Rate: bolus; Site: left antecubital; 22:30 Follow up: IV Status: Completed infusion cp4 22:30 Drug: NS 0.9% IV 1000 ml IV at 125 ml/hr continuous Route: IV; Rate: 125 ml/hr; Site: cp4 left antecubital; Disposition Summary: 05/31/24 21:52 Hospitalization Ordered Notes: Hospitalization Status: Inpatient Admission sp4 Provider: Apolinar Carlos sp4 Location: Telemetry/MedSur (Inpatient) sp4 Condition: Stable sp4 Problem: new sp4 Symptoms: have improved sp4 Bed/Room Type: Standard sp4 Room Assignment: 215(05/31/24 23:08) ty Diagnosis - Acute Pancreatitis sp4 Forms: - Medication Reconciliation Form sp4 - SBAR form sp4 - Leadership Thank You Letter sp4 Signatures: Dispatcher [employer] EDVida Lord RN RN lg3 Law Allen MD MD sp4 Samanta Chaves 4 Arabella Medeiros RN RN tm6 Angel Funez ty Corrections: (The following items were deleted from the chart) 19:26 19:25 TORadol - Ketorolac IVP 15 mg IVP once ordered. sp4 sp4 19:37 19:25 Abdomen Pelvis W Con+CT.RAD.BRZ ordered. EDMS EDMS 23:08 21:52 sp4 ty
--- NOTE | 2024-05-31 21:52 | ER ---
Nurse's Notes [facility] Name: Gisele Abbott Age: 74 yrs Sex: Female : 1950 Arrival Date: 05/31/2024 Time: 18:31 Bed 8 Private MD: Diagnosis: Acute Pancreatitis Presentation: 05/31 19:21 Chief complaint: Patient states: pain on right side x2 weeks. Nausea and chills today. tm6 Coronavirus screen: Client denies travel out of the [place] in the last 14 days. Ebola Screen: Patient negative for fever greater than or equal to 101.5 degrees Fahrenheit, and additional compatible Ebola Virus Disease symptoms Patient denies exposure to infectious person. Patient denies travel to an Ebola-affected area in the 21 days before illness onset. No symptoms or risks identified at this time. Initial Sepsis Screen: Does the patient meet any 2 criteria? No. Patient's initial sepsis screen is negative. Does the patient have a suspected source of infection? No. Patient's initial sepsis screen is negative. Risk Assessment: Do you want to hurt yourself or someone else? Patient reports no desire to harm self or others. Onset of symptoms was May 31, 2024. 19:21 Method Of Arrival: Ambulatory tm6 19:21 Acuity: ABDELRAHMAN 3 tm6 Triage Assessment: 19:21 General: Appears uncomfortable, Behavior is calm, cooperative. Pain: Complains of pain tm6 in posterior aspect of right lateral abdomen and anterior aspect of right lateral abdomen Pain currently is 9 out of 10 on a pain scale. Pain began x2 weeks. EENT: No signs and/or symptoms were reported regarding the EENT system. Neuro: Level of Consciousness is awake, alert, obeys commands, Oriented to person, place, time, situation. Cardiovascular: Patient's skin is warm and dry. Respiratory: Airway is patent Respiratory effort is even, unlabored, Respiratory pattern is regular, symmetrical. GI: Abdomen is flat, non-distended, Reports lower abdominal pain, upper abdominal pain, nausea. : No signs and/or symptoms were reported regarding the genitourinary system. Derm: No signs and/or symptoms reported regarding the dermatologic system. Musculoskeletal: No signs and/or symptoms reported regarding the musculoskeletal system. Historical: - Allergies: 19:21 Codeine; tm6 - PMHx: 19:21 Diabetes - IDDM; Hypertension; Stage 3 Kidney Disease; tm6 - PSHx: 19:21 Cholecystectomy; tm6 - Immunization history:: Flu vaccine is up to date. - Infectious Disease History:: Denies. - Social history:: Smoking status: Patient denies any tobacco usage or history of. - Family history:: not pertinent. Screenin:26 [facility] ED Fall Risk Assessment (Adult) History of falling in the last 3 months, cp4 including since admission No falls in past 3 months (0 pts) Confusion or Disorientation No (0 pts) Intoxicated or Sedated No (0 pts) Impaired Gait No (0 pts) Mobility Assist Device Used No (0 pt) Altered Elimination No (0 pt) Score/Fall Risk Level 0 - 2 = Low Risk Oriented to surroundings, Maintained a safe environment, Assessed \T\ reinforced patient's understanding of fall precautions, Hourly rounding (assess needs \T\ fall precautionary measures) done. Abuse screen: Denies threats or abuse. Nutritional screening: No deficits noted. Tuberculosis screening: No symptoms or risk factors identified. Assessment: 22:26 General: Appears in no apparent distress. comfortable, Behavior is calm, cooperative, cp4 appropriate for age. Pain: Complains of pain in abdomen and anterior aspect of right lateral abdomen and posterior aspect of right lateral abdomen Pain currently is 4 out of 10 on a pain scale. Neuro: Level of Consciousness is awake, alert, obeys commands, Oriented to person, place, time, situation. Cardiovascular: Patient's skin is warm and dry. Respiratory: Airway is patent Respiratory effort is even, unlabored. GI: Abdomen is round non-distended, Bowel sounds present X 4 quads. Abdomen is tender to palpation in abdomen and anterior aspect of right lateral abdomen and posterior aspect of right lateral abdomen. : No signs and/or symptoms were reported regarding the genitourinary system. EENT: No signs and/or symptoms were reported regarding the EENT system. Derm: No signs and/or symptoms reported regarding the dermatologic system. Musculoskeletal: No signs and/or symptoms reported regarding the musculoskeletal system. Vital Signs: 19:19 BP 175 / 73; Pulse 83; Resp 18; Temp 98.4(O); Pulse Ox 100% on R/A; MAP 104 mmHg; tm6 Weight 80.74 kg; Height 5 ft. 1 in. ; Pain 9/10; 22:28 BP 138 / 64; Pulse 73; Resp 18; Pulse Ox 97% ; cp4 19:19 Body Mass Index 33.63 (80.74 kg, 154.94 cm) tm6 19:19 Pain Scale: Adult tm6 [place] Coma Score: 06/01 18:32 Eye Response: spontaneous(4). Motor Response: obeys commands(6). Verbal Response: sp4 oriented(5). Total: 15. ED Course: 05/31 18:34 Patient arrived in ED. ra3 19:09 Law Allen MD is Attending Physician. sp4 19:21 Arm band placed on left wrist. tm6 19:22 Triage completed. tm6 19:23 Allergy band placed. tm6 19:54 CT Chest Abdomen Pelvis W/O Contrast In Process Unspecified. EDMS 20:13 Inserted saline lock: 20 gauge in left antecubital area, using aseptic technique. Blood oe collected. Flushed with 10 mL NS. 20:20 CBC with Diff Sent. lg3 20:20 CMP Sent. lg3 20:20 Lipase Sent. lg3 20:20 Urinalysis w/ reflexes Sent. lg3 21:48 Samanta Chaves is Primary Nurse. cp4 21:49 Apolinar Carlos MD is Hospitalizing Provider. sp4 22:26 Provided Education on: admission. cp4 22:26 No provider procedures requiring assistance completed. cp4 06/01 01:14 Patient admitted, IV remains in place. vc1 Administered Medications: 05/31 19:26 CANCELLED (Physician Discretion): TORadol - [id number] mg IVP once sp4 20:20 Drug: Ondansetron IVP 4 mg IVP once; over 2 minutes Route: IVP; Site: left antecubital; lg3 22:02 Follow up: Response: No adverse reaction cp4 20:20 Drug: traMADol PO 50 mg PO once Route: PO; lg3 22:01 Follow up: Response: No adverse reaction; Pain is decreased cp4 20:20 Drug: MetoCLOPramide PO 10 mg PO once Route: PO; lg3 22:00 Follow up: Response: No adverse reaction cp4 22:14 Drug: NS 0.9% IV 500 ml IV at bolus once; to be given as a bolus over 30 minutes Route: cp4 IV; Rate: bolus; Site: left antecubital; 22:30 Follow up: IV Status: Completed infusion cp4 22:30 Drug: NS 0.9% IV 1000 ml IV at 125 ml/hr continuous Route: IV; Rate: 125 ml/hr; Site: cp4 left antecubital; Medication: 22:26 VIS not applicable for this client. cp4 Outcome: 21:52 Decision to Hospitalize by Provider. spZahida 06/01 01:14 Admitted to Med/surg accompanied by tech, via wheelchair, room 215, vc1 Condition: good Instructed on the need for admit, 01:15 Patient left the ED. vc1 Signatures: Dispatcher [employer] EDMS Dion Clay Lacie RN RN lg3 Charlene Caldwell RN RN vc1 Law Allen MD MD sp4 Samanta Chaves cp4 Arabella Medeiros RN RN 6 Hanane De Santiago 3
[2024-05-31] MEDS ORDERED: NA CHLORIDE 0.9% 1,000 ML ONE (22:04)
[2024-05-31 22:09] LABS: White Blood Cell Scan OK (OK)
[2024-05-31 22:10] LABS: Blood Morphology Comment NOT SEEN (NOT SEEN); Platelet Estimate ADEQ
[2024-05-31 22:21] LABS: Thyroid Stimulating Hormone 1.02 uIU/mL (0.358-3.740); Troponin High Sensitivity 13.8 pg/mL (<58.9)
[2024-05-31] MEDS ORDERED: D10W 125 ML IV PRN (22:45)
[2024-05-31] MEDS ORDERED: GLUCAGON 1 MG/VIAL IM PRN (22:45)
--- NOTE | 2024-05-31 22:52 | P.HP ---
Certification for Inpatient Patient admitted to: Observation With expected LOS: <2 Midnights Practitioner: I am a practitioner with admitting privileges, knowledge of patient current condition, hospital course, and medical plan of care. Services: Services provided to patient in accordance with Admission requirements found in Title 42 Section 412.3 of the Code of Federal Regulations Patient History Date of Service: 05/31/24 Reason for admission: acute pancreatitis, abdominal pain History of Present Illness: 74-year-old woman with a past medical history significant for hypothyroidism, CKD, DM insulin-dependent, HTN, and HDL presented to the emergency department complaining of right lower quadrant abdominal pain/flank pain x 2 weeks. The patient states she went to urgent care for this issue and was given a Medrol dose pack and gabapentin. Despite being compliant with these medications, she reports minimal improvement in pain. She describes her abdominal pain as loca john in the right lower quadrant with radiation to the back, and of a stabbing quality. She states that leaning forward does not improve her symptoms, and leaning back does not worsen her symptoms. The patient is feeling nauseous, but denies any episodes of emesis. She denies fever, cough, dyspnea, and urinary symptoms. Allergies codeine [Codeine] Allergy (Severe, Verified 08/24/11 16:06) swelling/ringing in ears Home medications list reviewed: Yes Home Medications: Amlodipine [Norvasc*] 10 mg PO BEDTIME 04/23/13 lisinopriL [Prinivil*] 40 mg PO DAILY 04/23/13 Insulin Glargine Human [Lantus*] 32 units SQ BEDTIME 10/07/18 Levothyroxine [Synthroid*] 0.1 mg PO DAILY 10/07/18 Pravastatin Sodium 20 mg PO DAILY 10/07/18 - Past Medical/Surgical History Diabetic: Yes -: HTN -: hyperlipidemia -: DM insulin-dependent, 32 units at bedtime -: HDL -: Hypothyroidism -: CKD -: rotator cuff repair-right -: cholecystectomy - Family History Mother -: Heart disease, Other (see notes) Notes: dementia Father -: Lung disease Notes: emphysema, COPD - Social History Smoking Status: Never smoker Alcohol use: No CD- Drugs: No Caffeine use: Yes Review of Systems Gastrointestinal: Nausea, Abdominal Pain (Right lower quadrant with radiation to back), No Distention Physical Examination - Vital Signs Temperature: 98.4 F Blood Pressure: 175/73 Pulse: 83 Respirations: 18 Pulse Ox (%): 100 (room air) - Physical Exam General: Alert, Oriented x3 HEENT: Atraumatic, Normocephalic Neck: JVD not distended Respiratory: Clear to auscultation bilaterally Cardiovascular: No edema, Regular rate/rhythm, No gallops, No rubs, No murmurs Gastrointestinal: Normal bowel sounds, Non-distended, Tenderness (Right lower quadrant with radiation to back) Musculoskeletal: No swelling, No erythema, No tenderness, No warmth Neurological: Normal strength at 5/5 x4 extr, Sensation intact - Studies Laboratory Data (last 24 hrs) 05/31/24 05/31/24 20:07 20:07 WBC 11.20 H Hgb 12.7 Hct 38.9 Plt Count 216 Sodium 136 Potassium 4.8 BUN 65 H Creatinine 2.76 H Glucose 228 H Total Bilirubin 0.2 AST 25 ALT 27 Alkaline Phosphatase 121 H Lipase 200 H Assessment and Plan - Problems (Diagnosis) (1) Pancreatitis Current Visit: Yes Status: Acute (2) HTN (hypertension) Current Visit: Yes Status: Acute (3) Hypothyroidism Current Visit: Yes Status: Acute (4) CKD (chronic kidney disease) Current Visit: Yes Status: Acute (5) Dyslipidemia (high LDL; low HDL) Current Visit: Yes Status: Acute (6) Diabetes mellitus type 2 Current Visit: No Status: Active - Plan Acute pancreatitis: Admit to observation Clear liquid diet ordered IVF ordered Morphine ordered Zofran ordered CBC, CMP, lipase, LDH, and CRP ordered to trend CT C/A/P revealed 5 mm right upper lung pulmonary nodule, no pancreatic mass, no pancreatic dilatation, no pancreatic fluid seen, no acute abnormality Hypothyroidism: Resume home medication Hypertension: Resume home medication HDL: Resume home medication Diabetes: On insulin sliding scale CKD: Gentle hydration with IVF Heparin ordered - Advance Directives Does patient have a Living Will: No Does patient have a Durable POA for Healthcare: No
[2024-05-31] MEDS: AMLODIPINE 5 MG TAB PO SCH (23:00)
[2024-06-01 01:12] VITALS: BMI 34.2
[2024-06-01] MEDS: NA CHLORIDE 0.9% 1,000 ML IV SCH (01:21)
[2024-06-01] MEDS: MORPHINE 2 MG/ML SYR IV PRN (01:22)
[2024-06-01] MEDS: HEPARIN 5000 UNIT/ML 1 ML VIAL SQ SCH (01:22)
[2024-06-01] MEDS: ONDANSETRON 4 MG/2 ML VIAL IV PRN (01:35)
[2024-06-01 05:49] LABS: Absolute Basophils 0.1 K/uL (0-0.5); Absolute Eosinophils 0.1 K/uL (0-0.5); Absolute Monocytes 0.8 K/uL (0.1-1.3); Absolute Neutrophil 6.2 K/uL (1.8-8.0); Basophils % 0.8 % (0-1.3); Eosinophils % 1.5 % (0-4.4); Hematocrit 35.5 % (36.0-45.0); Hemoglobin 11.6 g/dL (12.0-15.0); Lymphocytes % 21.6 % (15.3-44.8); MCHC 32.8 g/dL (32.0-36.0); MCV 91.6 fL (80-100); MPV 9.6 fL (7.6-11.3); Monocytes % 9.2 % (3.3-12.3); Neutrophils % 66.9 % (41.7-73.7); Platelets 173 thou/uL (152-406); RBC Red Blood Cell Count 3.87 M/uL (3.86-4.86); Red Cell Distribution Width 13.8 % (12.1-15.2)
[2024-06-01 06:07] LABS: ALT/SGPT 20 U/L (13-56); AST/SGOT 19 U/L (15-37); Albumin 3.1 g/dL (3.4-5.0); Albumin/Globulin Ratio 0.9 (1.1-1.8); Alkaline Phosphatase 76 U/L (45-117); Anion Gap 9.9 mEq/L (5.0-15.0); BUN Blood Urea Nitrogen 58 mg/dL (7-18); Bicarbonate 20 mEq/L (21-32); Bilirubin Total 0.4 mg/dL (0.2-1.0); Globulin 3.5 g/dL (2.3-3.5); Glomerular Filtration Rate 20 ml/min (=/>90); Glucose Level 122 mg/dL (74-106); HDL Cholesterol 58 mg/dL (40-60); LDL Cholesterol, Calculated 59 mg/dL (<130); LDL Cholesterol,Calc NonReport 59; Lipase 112 U/L (13-75); Potassium 4.9 mEq/L (3.5-5.1); Protein, Total 6.6 g/dL (6.4-8.2); Sodium Level 139 mEq/L (136-145)
[2024-06-01 06:09] LABS: Bilirubin Direct < 0.2 mg/dL (0-0.2); Bilirubin Indirect, Calculated 0.2 mg/dL (0.2-0.8)
[2024-06-01] MEDS: INSULIN REGULAR (HUMAN) 100 UNIT/ML SQ SCH (07:17)
[2024-06-01] MEDS: LEVOTHYROXINE SOD 0.1 MG TAB PO SCH (08:36)
[2024-06-01] MEDS: lisinopriL 20 MG TAB PO SCH (08:36)
--- NOTE | 2024-06-01 11:42 | P.PN ---
Subjective Date of Service: 06/01/24 Chief Complaint: acute pancreatitis, abdominal pain Patient reports improvement in her abdominal pain. She denies any nausea and vomiting. She reports prior diarrhea prior to presentation. No diarrhea since admission. She denies alcohol intake. She states that she was recently started on Jardiance. Physical Examination - Vital Signs Temperature: 98.5 F Blood Pressure: 112/56 Pulse: 60 Respirations: 16 Pulse Ox (%): 97 - Studies Laboratory Data (last 24 hrs) 05/31/24 05/31/24 20:07 20:07 WBC 11.20 H Hgb 12.7 Hct 38.9 Plt Count 216 Sodium 136 Potassium 4.8 BUN 65 H Creatinine 2.76 H Glucose 228 H Total Bilirubin 0.2 AST 25 ALT 27 Alkaline Phosphatase 121 H Lipase 200 H Assessment And Plan - Plan Physical examination General: Alert and oriented x3, NAD, Neck: Supple, no elevated JVD Heart: Heart sounds 1 and 2 normal, regular rhythm, normal rate, no pedal edema Lungs: Clear to auscultation bilaterally, adequate breath sounds bilaterally, no rhonchi or crackles. Abdomen: Soft, nondistended, mild epigastric tenderness, normal bowel sounds. Extremities: No tenderness, no deformity Skin: Normal skin turgor, no rash, no nodules or ulcers. Neuro: No focal motor deficit. Normal speech. Psychiatry: Normal mood, no agitation. Diagnosis Acute pancreatitis DM type II Chronic kidney disease stage III Essential hypertension Plan: Acute pancreatitis Patient recently started Jardiance. Patient reports history of cholecystectomy and does not drink alcohol. Most probable cause of acute pancreatitis likely medication related with Jardiance implicated. Continue supportive measures with IV hydration. Clear liquid diet Monitor lipase level. Chronic kidney disease stage III IV hydration Monitor renal function. DM type II Blood glucose readings within acceptable Insulin sliding scale for glucose management. Hold Lantus insulin for now. Essential hypertension Patient is currently normotensive Continue current dose amlodipine. DVT prophylaxis: Heparin SQ. Advanced directive: Full code
[2024-06-01] MEDS: ACETAMINOPHEN 325 MG TABLET PO PRN (12:16)
--- NOTE | 2024-06-01 14:11 | EKG ---
Test Date: 2024-05-31 Test Time: 22:11:58 Helpdesk Technician: MARIBEL MEASUREMENT RESULTS: Intervals: Rate: 78 TN: 188 QRSD: 72 QT: 350 QTc: 399 Russell: P: 59 TN: 188 QRS: -18 T: 58 INTERPRETIVE STATEMENTS: Normal sinus rhythm Low voltage QRS Borderline ECG Compared to ECG 06/07/2021 07:16:03 Low QRS voltage now present Electronically Signed On 06-01-24 14:10:21 [employer]IE[employer]IST [employer] by Kannan Msea
[2024-06-01] MEDS: ATORVASTATIN 10 MG TAB PO SCH (19:49)
[2024-06-02 06:25] LABS: Absolute Eosinophils 0.2 K/uL (0-0.5); Absolute Lymphocytes (CBC) 2.1 K/uL (0.7-4.9); Absolute Monocytes 0.6 K/uL (0.1-1.3); Absolute Neutrophil 2.9 K/uL (1.8-8.0); Basophils % 0.7 % (0-1.3); Eosinophils % 3.5 % (0-4.4); Hematocrit 36.1 % (36.0-45.0); Hemoglobin 11.9 g/dL (12.0-15.0); Lymphocytes % 35.7 % (15.3-44.8); MCH 30.4 pg (27.0-35.0); MPV 8.9 fL (7.6-11.3); Monocytes % 9.9 % (3.3-12.3); Neutrophils % 50.2 % (41.7-73.7); Nucleated Red Blood Cells % 0.1 % (0-0); Platelets 184 thou/uL (152-406); RBC Red Blood Cell Count 3.93 M/uL (3.86-4.86); Red Cell Distribution Width 13.8 % (12.1-15.2)
[2024-06-02 06:46] LABS: Anion Gap 10.2 mEq/L (5.0-15.0); Magnesium 1.7 mg/dL (1.6-2.4); Phosphorus 3.5 mg/dL (2.5-4.9); Potassium 5.2 mEq/L (3.5-5.1)
[2024-06-02] MEDS: MORPHINE 4 MG/ML SYR IV PRN (07:31)
[2024-06-02] MEDS: MAGNESIUM SULFATE 1 gm IVPB 1 GM/100 ML BAG IV ONE (08:17)
[2024-06-02] MEDS: SODIUM ZIRCONIUM CYCLOSILICATE 10 GM/PKT PO ONE ×2 (08:19→18:03)
--- NOTE | 2024-06-02 15:16 | P.DS ---
Admission Date: 06/01/24 Discharge Date: 06/02/24 Disposition: ROUTINE DISCHARGE Discharge Condition: FAIR Reason for Admission: acute pancreatitis, abdominal pain Brief History of Present Illness: 74-year-old woman with a past medical history significant for hypothyroidism, CKD, DM insulin-dependent, HTN, and HDL presented to the emergency department complaining of right lower quadrant abdominal pain/flank pain x 2 weeks. She went to urgent care for this issue and was prescribed Medrol dose pack and gabapentin. Her symptoms did not improve. CT abdomen and pelvis done in the emergency department was unremarkable. Patient lipase noted to be elevated. She was admitted for further management of acute pancreatitis. Hospital Course: Diagnosis Acute pancreatitis DM type II Chronic kidney disease stage III Essential hypertension Patient admitted to the medical floor and the following medical problems addressed: Acute pancreatitis Patient recently started Jardiance. Patient reports history of cholecystectomy and does not drink alcohol. Most probable cause of acute pancreatitis likely medication related with Jardiance implicated. Patient treated with IV hydration. Lipase level improved to normal. Patient tolerated full liquid diet. Abdominal pain resolved. Patient is deemed stable for discharge.. Chronic kidney disease stage III Hyperkalemia Patient hydrated with IV fluid Hyperkalemia was treated with Lokelma. Patient is on lisinopril which is put on hold. DM type II Blood glucose readings within acceptable Insulin sliding scale for glucose management. Lantus insulin resumed on discharge. Home metformin put on hold given CKD. Essential hypertension Patient is currently normotensive Continue amlodipine Lisinopril put on hold due to CKD with hyperkalemia. Patient informed to follow-up with his bit grinder next week for medication adjustments. Vital Signs/Physical Exam: Temp Pulse Resp BP Pulse Ox 97 F 55 16 107/55 L 99 06/02/24 12:00 06/02/24 12:00 06/02/24 12:00 06/02/24 12:00 06/02/24 12:00 General: Alert, In no apparent distress, Oriented x3 HEENT: Mucous membr. moist/pink, Sclerae nonicteric Neck: Supple, JVD not distended Respiratory: Clear to auscultation bilaterally, Normal air movement Cardiovascular: No edema, Regular rate/rhythm, Normal S1 S2 Gastrointestinal: Normal bowel sounds, Soft and benign, Non-distended, No tenderness Musculoskeletal: No swelling Integumentary: No rashes, No cyanosis Neurological: Normal strength at 5/5 x4 extr Laboratory Data at Discharge: WBC 5.80 thou/uL (4.3-10.9) 06/02/24 06:05 Hgb 11.9 g/dL (12.0-15.0) L 06/02/24 06:05 Hct 36.1 % (36.0-45.0) 06/02/24 06:05 Plt Count 184 thou/uL (152-406) 06/02/24 06:05 Sodium 139 mEq/L (136-145) 06/02/24 06:05 Potassium 5.2 mEq/L (3.5-5.1) H 06/02/24 06:05 BUN 40 mg/dL (7-18) H 06/02/24 06:05 Creatinine 2.33 mg/dL (0.55-1.02) H 06/02/24 06:05 Glucose 87 mg/dL (74-106) 06/02/24 06:05 Phosphorus 3.5 mg/dL (2.5-4.9) 06/02/24 06:05 Magnesium 1.7 mg/dL (1.6-2.4) 06/02/24 06:05 Total Bilirubin 0.4 mg/dL (0.2-1.0) 06/01/24 05:16 AST 19 U/L (15-37) 06/01/24 05:16 ALT 20 U/L (13-56) 06/01/24 05:16 Alkaline Phosphatase 76 U/L (45-117) D 06/01/24 05:16 Triglycerides 111 mg/dL (<150) 06/01/24 05:16 Cholesterol 139 mg/dL (<200) 06/01/24 05:16 HDL Cholesterol 58 mg/dL (40-60) 06/01/24 05:16 Cholesterol/HDL Ratio 2.40 06/01/24 05:16 Lipase 27 U/L (13-75) 06/02/24 06:05 Home Medications: Amlodipine [Norvasc*] 10 mg PO DAILY 04/23/13 Insulin Glargine Human [Lantus*] 32 units SQ BEDTIME 10/07/18 Levothyroxine [Synthroid*] 0.1 mg PO DAILY 10/07/18 Pravastatin Sodium 40 mg PO DAILY 10/07/18 Diet: ADA Activity: Ad luis Followup: Moiz Morrison DO [ACTIVE - CAN ADMIT] - 1 Week Milvia England DO [Primary Care Provider] - 1-2 Weeks Time spent managing pt's care (in minutes): 34
[2024-06-02 16:02] LABS: Anion Gap 6.4 mEq/L (5.0-15.0); Potassium 5.4 mEq/L (3.5-5.1)
--- NOTE | 2024-06-02 18:28 | P.PN ---
Subjective Date of Service: 06/02/24 Chief Complaint: acute pancreatitis, abdominal pain Patient reports significant improvement in her abdominal No issues overnight. She has tolerated clear liquid diet No diarrhea since admission. Physical Examination - Vital Signs Temperature: 97.5 F Blood Pressure: 118/60 Pulse: 61 Respirations: 16 Pulse Ox (%): 99 Assessment And Plan - Plan Physical examination General: Alert and oriented x3, NAD, Neck: Supple, no elevated JVD Heart: Heart sounds 1 and 2 normal, regular rhythm, normal rate, no pedal edema Lungs: Clear to auscultation bilaterally, adequate breath sounds bilaterally, no rhonchi or crackles. Abdomen: Soft, nondistended, nontender, normal bowel sounds. Extremities: No tenderness, no deformity Skin: Normal skin turgor, no rash, no nodules or ulcers. Neuro: No focal motor deficit. Normal speech. Psychiatry: Normal mood, no agitation. Diagnosis Acute pancreatitis DM type II Chronic kidney disease stage III Essential hypertension Plan: Acute pancreatitis Possibly drug-induced. Patient reports history of cholecystectomy and does not drink alcohol. Most probable cause of acute pancreatitis likely medication related with Jardiance implicated. Lipase level improved to normal. Continue IV hydration and advance diet as tolerated. Chronic kidney disease stage III Hyperkalemia Continue IV hydration. Lokelma as needed. Hold lisinopril Monitor renal function. Nephrology consult. DM type II Blood glucose readings within acceptable Insulin sliding scale for glucose management. Continue to hold Lantus insulin. Essential hypertension Patient is currently normotensive Continue current dose amlodipine. Lisinopril is on hold. DVT prophylaxis: Heparin SQ. Advanced directive: Full code
[2024-06-02] MEDS: MORPHINE 2 MG/ML SYR IV PRN (19:32)
[2024-06-03 05:50] LABS: Anion Gap 9.3 mEq/L (5.0-15.0); Potassium 4.3 mEq/L (3.5-5.1)
[2024-06-03 06:05] LABS: Albumin 2.6 g/dL (3.4-5.0); Albumin/Globulin Ratio 0.8 (1.1-1.8); Bilirubin Direct 0.2 mg/dL (0-0.2); Bilirubin Indirect, Calculated 0.4 mg/dL (0.2-0.8); Bilirubin Total 0.6 mg/dL (0.2-1.0); Globulin 3.3 g/dL (2.3-3.5); Magnesium 1.5 mg/dL (1.6-2.4); Protein, Total 5.9 g/dL (6.4-8.2)
[2024-06-03] MEDS: Magnesium Sulfate 2gm IVPB 2 G/50 ML BAG IV ONE (06:26)
[2024-06-03 08:20] VITALS: BP 125/60
--- NOTE | 2024-06-03 08:52 | P.DS ---
Admission Date: 06/01/24 Discharge Date: 06/03/24 Disposition: ROUTINE DISCHARGE Discharge Condition: FAIR Reason for Admission: acute pancreatitis, abdominal pain Consultations: Nephrology - Dr. Zabala Brief History of Present Illness: 74yo F, PMH: hypothyroidism, CKD, DM insulin-dependent, HTN, and HDL Patient presented to the emergency department complaining of right lower quadrant abdominal pain/flank pain x 2 weeks. The patient states she went to urgent care for this issue and was given a Medrol dose pack and gabapentin. Despite being compliant with these medications, she reports minimal improvement in pain. She describes her abdominal pain as located in the right lower quadrant with radiation to the back, and of a stabbing quality. She states that leaning forward does not improve her symptoms, and leaning back does not worsen her symptoms. The patient is feeling nauseous, but denies any episodes of emesis. She denies fever, cough, dyspnea, and urinary symptoms. Hospital Course: Problem List: Acute pancreatitis, improving NIDDM2 Chronic kidney disease stage III Essential hypertension Patient admitted to the medical floor and the following medical problems addressed: Acute pancreatitis Patient recently started Jardiance. Patient reports history of cholecystectomy and does not drink alcohol. Most probable cause of acute pancreatitis likely medication related with Jardiance implicated. Patient treated with IV hydration. Lipase level improved to normal. Patient tolerated full liquid diet. Abdominal pain resolved. Patient is deemed stable for discharge. Stop jardiance on discharge. Follow up with PCP for further management of medications. Continue soft food diet for next 3-5 days. Slowly advance to regular diet over the next few days. Avoid fatty foods. Chronic kidney disease stage III Hyperkalemia Patient hydrated with IV fluid Hyperkalemia was treated with Lokelma. Patient is on ramipril which is put on hold. DM type II Blood glucose readings within acceptable Insulin sliding scale for glucose management. Home metformin was put on hold given CKD. Okay to resume home Lantus insulin resumed on discharge. Stop Metformin for now due to acute pancreatitis and chronic kidney disease. Follow up with PCP for further management Essential hypertension Patient is currently normotensive Continue amlodipine Ramipril put on hold due to CKD with hyperkalemia. Patient informed to follow-up with her commercial lending relationship manager next week for medication adjustments. Hold Ramipril until you follow up with PCP/commercial lending relationship manager. Check blood pressure around the same time each day. Keep daily diary of blood pressure readings to take to follow up appointments. Medications: Stop Jardiance Stop Ramipril for now Stop Metformin for now continue other home medicatons as previously prescribed. Follow up with PCP/Piece Worker for further adjustments of medications. Follow up: PCP 3-5 days Nephrology 1-2 weeks Please call to schedule / confirm appointments Vital Signs/Physical Exam: Temp Pulse Resp BP Pulse Ox 96.7 F L 73 16 125/60 95 06/03/24 04:00 06/03/24 08:13 06/03/24 04:00 06/03/24 08:13 06/03/24 04:00 Laboratory Data at Discharge: WBC 5.80 thou/uL (4.3-10.9) 06/02/24 06:05 Hgb 11.9 g/dL (12.0-15.0) L 06/02/24 06:05 Hct 36.1 % (36.0-45.0) 06/02/24 06:05 Plt Count 184 thou/uL (152-406) 06/02/24 06:05 Sodium 141 mEq/L (136-145) 06/03/24 05:09 Potassium 4.3 mEq/L (3.5-5.1) D 06/03/24 05:09 BUN 31 mg/dL (7-18) H 06/03/24 05:09 Creatinine 2.20 mg/dL (0.55-1.02) H 06/03/24 05:09 Glucose 100 mg/dL (74-106) 06/03/24 05:09 Phosphorus 3.5 mg/dL (2.5-4.9) 06/02/24 06:05 Magnesium 1.5 mg/dL (1.6-2.4) L 06/03/24 05:09 Magnesium Cancelled 06/03/24 05:09 Total Bilirubin 0.6 mg/dL (0.2-1.0) 06/03/24 05:09 Total Bilirubin Cancelled 06/03/24 05:09 AST 17 U/L (15-37) 06/03/24 05:09 AST Cancelled 06/03/24 05:09 ALT 19 U/L (13-56) 06/03/24 05:09 ALT Cancelled 06/03/24 05:09 Alkaline Phosphatase 63 U/L (45-117) 06/03/24 05:09 Alkaline Phosphatase Cancelled 06/03/24 05:09 Triglycerides 111 mg/dL (<150) 06/01/24 05:16 Cholesterol 139 mg/dL (<200) 06/01/24 05:16 HDL Cholesterol 58 mg/dL (40-60) 06/01/24 05:16 Cholesterol/HDL Ratio 2.40 06/01/24 05:16 Lipase 20 U/L (13-75) 06/03/24 05:09 Lipase Cancelled 06/03/24 05:09 Home Medications: Amlodipine [Norvasc*] 10 mg PO DAILY 04/23/13 Insulin Glargine Human [Lantus*] 32 units SQ BEDTIME 10/07/18 Levothyroxine [Synthroid*] 0.1 mg PO DAILY 10/07/18 Pravastatin Sodium 40 mg PO DAILY 10/07/18 Physician Discharge Instructions: Patient admitted to the medical floor and the following medical problems addressed: Acute pancreatitis Patient recently started Jardiance. Patient reports history of cholecystectomy and does not drink alcohol. Most probable cause of acute pancreatitis likely medication related with Jardiance implicated. Patient treated with IV hydration. Lipase level improved to normal. Patient tolerated full liquid diet. Abdominal pain resolved. Patient is deemed stable for discharge. Stop jardiance on discharge. Follow up with PCP for further management of medications. Continue soft food diet for next 3-5 days. Slowly advance to regular diet over the next few days. Avoid fatty foods. Chronic kidney disease stage III Hyperkalemia Patient hydrated with IV fluid Hyperkalemia was treated with Lokelma. Patient is on ramipril which is put on hold. DM type II Blood glucose readings within acceptable Insulin sliding scale for glucose management. Home metformin was put on hold given CKD. Okay to resume home Lantus insulin resumed on discharge. Stop Metformin for now due to acute pancreatitis and chronic kidney disease. Follow up with PCP for further management Essential hypertension Patient is currently normotensive Continue amlodipine Ramipril put on hold due to CKD with hyperkalemia. Patient informed to follow-up with her commercial lending relationship manager next week for medication adjustments. Hold Ramipril until you follow up with PCP/commercial lending relationship manager. Check blood pressure around the same time each day. Keep daily diary of blood pressure readings to take to follow up appointments. Medications: Stop Jardiance Stop Ramipril for now Stop Metformin for now continue other home medicatons as previously prescribed. Follow up with PCP/Piece Worker for further adjustments of medications. Follow up: PCP 3-5 days Nephrology 1-2 weeks Please call to schedule / confirm appointments Diet: ADA Activity: Ad luis Followup: Moiz Morrison DO [ACTIVE - CAN ADMIT] - 1 Week Milvia England DO [Primary Care Provider] - 1-2 Weeks Time spent managing pt's care (in minutes): 45
[2024-06-03 09:31] VITALS: TEMP 98; O2SAT 93
[2024-06-03] MEDS ORDERED: INSULIN REGULAR (HUMAN) 100 UNIT/ML SQ SCH (12:00)
== END 2024-06-03 09:46 | disposition home or self-care (01) | DRG 440 ==
LOC: ER 18:31 → 2ND 22:39 → OBSVTOIN 06-01 18:01
PROVIDERS: ADMIT Internal Medicine; ATTEND Hospitalist
DX: K85.90 Acute pancreatitis without necrosis or infection, unspecified (principal); I12.9 Hypertensive chronic kidney disease with stage 1 through stage 4 chronic kidney disease, or unspecified chronic kidney disease; N18.30 Chronic kidney disease, stage 3 unspecified; E11.22 Type 2 diabetes mellitus with diabetic chronic kidney disease; E87.5 Hyperkalemia; E78.5 Hyperlipidemia, unspecified; E03.9 Hypothyroidism, unspecified; T50.995A Adverse effect of other drugs, medicaments and biological substances, initial encounter; Z79.4 Long term (current) use of insulin; Z88.5 Allergy status to narcotic agent; Z90.49 Acquired absence of other specified parts of digestive tract; Z79.890 Hormone replacement therapy; Z79.899 Other long term (current) drug therapy
CPT/HCPCS: 36415; 71250; 74176; 80048; 80053; 80061; 80076; 81001; 82248; 82947; 83615; 83690; 83735; 83880; 84100; 84443; 84484; 85025; 86140; 93005; 94760; 96374; 99285; G0378; J1644; J2270; J2405; J3475; J7030